=== PATIENT | male | born 1975 | race Caucasian/White ===

== ENCOUNTER 2017-11-02 07:02 | Inpatient (IN) ==
[2017-11-02] MEDS ORDERED: 0.9 % Sodium Chloride 1,000 ML IVC ONE (07:26)
[2017-11-02] MEDS ORDERED: Ondansetron 4 MG/2 ML VIAL IVP ONE (07:26)
[2017-11-02] MEDS ORDERED: *HR* FentaNYL (PF) 100 MCG/2 ML VIAL IVP ONE (07:27)
--- NOTE | 2017-11-02 07:30 | Emergency Department Note ---
Disposition Clinical Impression: Perforated appendicitis Abdominal pain Qualifiers: Abdominal location: right lower quadrant Qualified Code(s): R10.31 - Right lower quadrant pain Disposition: Admitted As Inpatient Condition: Fair Referrals: Mariajose Reyes DO [Primary Care Provider] - Forms: ED Satisfaction Letter, Work/School Release Time of Disposition: 09:01 Abdominal Pain HPI - General Chief Complaint: ED Abdominal Pain Stated Complaint: abd pain Time Seen by Provider: 11/02/17 07:11 Source: patient Mode of arrival: ambulatory Limitations: no limitations Nursing Notes Reviewed: Yes Vital Signs Reviewed: Yes - History of Present Illness HPI Narrative: 41-year-old otherwise healthy male persists for evaluation of abdominal pain. Patient states symptom onset was 48 hours ago. Patient noted some lower. Umbilical abdominal pain with a prominence of pain in the right lower quadrant. Patient states the pain is persisted until this morning. Patient reports nausea but no vomiting. Patient denies any notable fevers. Patient has reported history of constipation. Patient states the pain is appear throbbing in nature. Patient denies any aggravating or alleviating factors. Patient denies any dysuria or hematuria. Patient denies any abdominal surgeries. Patient's been nothing by mouth for the past 2 hours. Pain Scale: 5 - Related Data Allergies Allergy/AdvReac Type Severity Reaction Status Date / Time No Known Allergies Allergy Verified 11/02/17 07:04 All systems ED: reviewed and negative except as stated. Constitutional: Denies: fever Cardiovascular: Denies: chest pain Respiratory: Denies: cough, dyspnea Gastrointestinal: Reports: abdominal pain, nausea, constipation. Denies: vomiting Abdominal Pain PMH - Past Medical History Medical history: Reports: no medical history Male Surgical History: Reports: herniorrhaphy Psychiatric history: Reports: no psych history - Social History Smoking status: Current every day smoker Alcohol use: Reports: none Drug use: Reports: none Physical Exam - General Limitations: no limitations General appearance: alert, in no apparent distress - Head Head exam: atraumatic, normocephalic, normal inspection - Eye Eye exam: Present: normal appearance, PERRL, EOMI - ENT ENT exam: normal exam, normal oropharynx, mucous membranes moist - Neck Neck exam: Present: normal inspection - Chest Chest inspection: Present: normal inspection, symmetric chest wall rise - Respiratory Respiratory exam: Present: normal lung sounds bilaterally. Absent: respiratory distress - Cardiovascular Cardiovascular exam: Present: regular rate, normal rhythm. Absent: systolic murmur - Abdominal Exam Abdominal exam: Present: soft, tenderness, guarding (voluntary guarding). Absent: distention, rebound - Extremities Exam Extremities exam: Present: normal inspection. Absent: pedal edema - Back Exam Back exam: Present: normal inspection - Neurological Exam Neurological exam: Present: alert, oriented X3 - Skin Skin exam: Present: warm, dry, intact, normal color Course Course Narrative: Patient seen and examined. Patient appears comfortable. Patient does has noted right lower quadrant tenderness. Does have voluntary guarding. Patient will get basic labs appropriate pain control IV fluids and CT of the abdomen and pelvis concerns for appendicitis. - Reevaluation(s) Reevaluation #1: Patient's repeat abdominal exam shows significant tenderness in the right lower quadrant with voluntary guarding. Time: 09:04 - Consultations Consultation #1: Spoke with surgery, Dr. Marrero who recommends Zosyn and will be down to evaluate the patient. Time: 09:04 Vital Signs Temperature 98.2 F 11/02/17 07:04 Pulse Rate 102 11/02/17 07:04 Respiratory Rate 20 11/02/17 07:04 Blood Pressure 93/65 11/02/17 07:04 O2 Sat by Pulse Oximetry 97 11/02/17 07:04 Temperature 98.2 F 11/02/17 07:04 Pulse Rate 103 11/02/17 08:35 Respiratory Rate 20 11/02/17 08:35 Blood Pressure 131/77 11/02/17 08:35 O2 Sat by Pulse Oximetry 96 11/02/17 08:35 Oxygen Delivery Oxygen Delivery Room Air Abdominal Pain - MDM Narrative Medical decision making narrative: Patient's workup in the emergency department shows a perforated appendicitis. Patient's pain was controlled emergency arm. Patient is treated with IV fluids. Patient is also given antibiotics. Patient's abdominal exam is benign peritoneal but did have significant tenderness in the right lower side with voluntary guarding. Patient case was discussed with the on-call surgeon who will be down to evaluate the patient. Patient received preoperative EKG screening. Patient is updated on plan of care. - Lab Data Lab results reviewed: Yes I reviewed the patient's lab results. Result diagrams: 11/02/17 07:30 11/02/17 07:30 Lab Results 11/02/17 11/02/17 11/02/17 Range/Units 07:18 07:30 07:30 WBC 21.6 H (4.3-11.1) K/mcL RBC 5.30 (4.19-5.50) M/mcL Hgb 15.3 (12.9-16.9) g/dL Hct 45.4 (37.5-50.1) % MCV 85.7 (83.0-100.0) fL MCH 28.9 (28.0-33.3) pg MCHC 33.7 (31.6-35.5) g/dL RDW 13.3 (11.5-14.5) % Plt Count 289 (140-400) K/mcL MPV 10.9 (9.4-12.4) fL Immature Gran % 0.6 (0-4) % Seg Neutrophils % 72.4 % Lymphocytes % 13.5 % Monocytes % 13.2 % Eosinophils % 0.1 % Basophils % 0.2 % Neutrophils # 15.6 H (1.6-8.9) K/mcL Lymphocytes # 2.9 (0.6-4.6) K/mcL Monocytes # 2.8 H (0.0-1.3) K/mcL Eosinophils # 0.0 (0.0-0.6) K/mcL Basophils # 0.0 (0.0-0.2) K/mcL Sodium 133 L (136-145) mEq/L Potassium 3.6 (3.5-5.1) mEq/L Chloride 104 (98-107) mEq/L Carbon Dioxide 21 L (23-29) mEq/L BUN 9 (6-20) mg/dL Creatinine 1.07 (0.70-1.30) mg/dL Est GFR ( Amer) > 60 (> 60) Est GFR (Non-Af Amer) > 60 (> 60) BUN/Creatinine Ratio 8 (6-26) Glucose 147 H (70-105) mg/dL Calculated Osmolality 277 L (280-300) Calcium 9.3 (8.6-10.3) mg/dL Total Bilirubin 0.6 (0.3-1.0) mg/dL Direct Bilirubin 0.1 (0.0-0.2) mg/dL Indirect Bilirubin 0.5 (0.0-1.2) mg/dL AST 11 L (13-39) Units/L ALT 13 (7-52) Units/L Alkaline Phosphatase 63 (34-104) Units/L Serum Total Protein 7.1 (6.4-8.9) g/dL Albumin 4.0 (3.5-5.7) g/dL Globulin 3.1 (2.4-3.5) g/dL Albumin/Globulin Ratio 1.3 (1.1-2.2) Lipase < 3 L (11-82) Units/L Urine Color Dark Yellow (Yellow) Urine Clarity Clear (Clear) Urine pH 6.5 (5.0-8.0) pH Units Ur Specific [place] 1.030 H (1.010-1.025) Urine Protein 30 H (Neg-Trace) mg/dL Urine Glucose (UA) Normal (Normal) mg/dL Urine Ketones Trace H (Negative) mg/dL Urine Blood Negative (Negative) Urine Nitrite Negative (Negative) Urine Bilirubin Small H (Negative) Urine Urobilinogen Normal (Normal) mg/dL Ur Leukocyte Esterase Negative (Negative) Urine Microscopic RBC 5-15 H (0-3) per hpf Urine Microscopic WBC 0-3 (0-3) per hpf Ur Squamous Epith Cells Few (None-Few) per lpf Urine Bacteria None Seen (None-Few) per hpf Hyaline Casts None Seen (None-Few) per lpf Ur Culture Indicated? NO (NO) - Radiology Data Radiology results reviewed: Yes I reviewed the patient's radiology results. Abdomen/Pelvis CT 11/02/17 07:29 IMPRESSION: Perforated acute appendicitis with appendicolith noted and inflammation and fluid the periappendiceal region/ retroperitoneum with a small amount of free fluid in the abdomen. No drainable abscess is seen at this time. D/ / Fred Calloway MD / Fred Calloway MD Interpreting Provider: Fred Calloway MD - EKG Data EKG attestation: Yes I reviewed and interpreted this EKG. EKG shows normal: sinus rhythm Rate: normal Rhythm: NSR [place]/QRS: normal Interpretation: no acute changes, nonspecific ST-T wave changes S.B.A.R. - S.B.A.R. Situation: Demographics Background: Presenting Complaint Assessment: Vital Signs, Course and respsone to treatment, Patient/Family Expectation Recommendation: Barrier(s) to disposition, Recommendation based on pending studies, treatments, or consults Ellen Report Given to: Dr. Elida Hughes Repor Time: 09:02
[2017-11-02 08:10] LABS: Basophils % 0.2 %; Eosinophils % 0.1 %; Hematocrit 45.4 % (37.5-50.1); Hemoglobin 15.3 g/dL (12.9-16.9); Immature Granulocytes % 0.6 % (0-4); Lymphocytes # 2.9 K/mcL (0.6-4.6); Lymphocytes % 13.5 %; Mean Corpuscular HGB Conc 33.7 g/dL (31.6-35.5); Mean Corpuscular Hemoglobin 28.9 pg (28.0-33.3); Mean Corpuscular Volume 85.7 fL (83.0-100.0); Mean Platelet Volume 10.9 fL (9.4-12.4); Monocytes # 2.8 K/mcL (0.0-1.3); Monocytes % 13.2 %; Neutrophils # 15.6 K/mcL (1.6-8.9); Platelet Count 289 K/mcL (140-400); Red Cell Distribution Width 13.3 % (11.5-14.5); Segmented Neutrophils % 72.4 %
[2017-11-02 08:11] LABS: BUN/Creatinine Ratio 8 (6-26); Bilirubin,Direct 0.1 mg/dL (0.0-0.2); Bilirubin,Total 0.6 mg/dL (0.3-1.0); Blood Urea Nitrogen 9 mg/dL (6-20); Calcium 9.3 mg/dL (8.6-10.3); Carbon Dioxide 21 mEq/L (23-29); Chloride 104 mEq/L (98-107); Glucose 147 mg/dL (70-105); Osmolality,Calculated 277 (280-300); Potassium 3.6 mEq/L (3.5-5.1); Sodium 133 mEq/L (136-145); eGFR For African Americans > 60 (> 60); eGFR For Non-African Americans > 60 (> 60)
--- NOTE | 2017-11-02 08:11 | Emergency Department Note ---
START Narrative - START START: I examined this patient and my medical decision-making was reviewed with the Resident Physician. I agree with the documented findings, disposition and treatment plan as described except to the extent set forth below. 41 year old male prsents to the ED with complaints of abdominal pain suggestive of appendicitis assocaited with nausea. No vomitting, no fevers. WE will do labs and ABCT for evaluation.
[2017-11-02 08:12] LABS: Alanine Aminotransferase 13 Units/L (7-52); Albumin/Globulin Ratio 1.3 (1.1-2.2); Alkaline Phosphatase 63 Units/L (34-104); Aspartate Amino Transferase 11 Units/L (13-39); Bilirubin,Indirect 0.5 mg/dL (0.0-1.2); Globulin 3.1 g/dL (2.4-3.5); Lipase < 3 Units/L (11-82); Total Protein 7.1 g/dL (6.4-8.9)
[2017-11-02 08:21] LABS: Bilirubin,Urine Small (Negative); Blood,Urine Negative (Negative); Clarity,Urine Clear (Clear); Color,Urine Dark Yellow (Yellow); Glucose,Urine (UA) Normal (Normal); Ketones,Urine Trace mg/dL (Negative); Leukocyte Esterase,Urine Negative (Negative); Nitrite,Urine Negative (Negative); PH,Urine 6.5 pH Units (5.0-8.0); Protein,Urine 30 mg/dL (Neg-Trace); Urobilinogen,Urine Normal (Normal)
[2017-11-02 08:23] LABS: Bacteria,Urine None Seen per hpf (None-Few); Hyaline Casts,Urine None Seen per lpf (None-Few); Squamous Epithelial Cell,Urine Few per lpf (None-Few); WBC,Urine 0-3 per hpf (0-3)
[2017-11-02] MEDS ORDERED: Piperacillin/Tazobactam 3.375 GM in 0.9 % Sodium Chloride Mini Bag 100 ML IVPB ONE (08:58)
[2017-11-02] MEDS ORDERED: *HR* Metoprolol 5 MG/5 ML VIAL IVP PRN (10:16)
[2017-11-02] MEDS ORDERED: Naloxone 0.4 MG/ML INJ IVP PRN (10:16)
[2017-11-02] MEDS ORDERED: Ondansetron 4 MG/2 ML VIAL IVP PRN (10:16)
[2017-11-02] MEDS ORDERED: *HR* Promethazine 25 MG/ML VIAL IVP PRN (10:16)
[2017-11-02] MEDS ORDERED: MORPHINE SUL Oral CONC 10 MG/0.5 ML ORAL.SYG SL PRN ×2 (10:22→10:23)
[2017-11-02] MEDS: 0.9 % Sodium Chloride 1,000 ML IVC SCH ×2 (10:52→19:52)
[2017-11-02] MEDS ORDERED: Ketorolac 30 MG/ML VIAL IVP ONE (11:20)
[2017-11-02] MEDS ORDERED: OXYCODONE Oral CONC 10 MG/0.5 ML ORAL.SYG SL PRN ×2 (12:00)
[2017-11-02] MEDS: Pantoprazole 40 MG VIAL IVP SCH (12:19)
--- NOTE | 2017-11-02 15:59 | General Surg History&Physical ---
Date of Encounter: 11/02/17 Time of Encounter: 11:00 Assessment and Plan (1) Leukocytosis Current Visit: Yes Status: Acute The assessment and plan as outlined above was discussed with the patient and/or family members who expressed understanding and agreement. All questions were answered. trend wbc on zosyn Qualifiers: Leukocytosis type: other Qualified Code(s): D72.828 - Other elevated white blood cell count (2) Hyperlipidemia Current Visit: Yes Status: Chronic The assessment and plan as outlined above was discussed with the patient and/or family members who expressed understanding and agreement. All questions were answered. hold home medication Qualifiers: Hyperlipidemia type: unspecified Qualified Code(s): E78.5 - Hyperlipidemia , unspecified (3) Abdominal pain Current Visit: Yes Status: Acute The assessment and plan as outlined above was discussed with the patient and/or family members who expressed understanding and agreement. All questions were answered. prn oxycodone po schedule ofirmev serial abdominal exams Qualifiers: Abdominal location: right lower quadrant Qualified Code(s): R10.31 - Right lower quadrant pain (4) Perforated appendicitis Current Visit: Yes Status: Acute The assessment and plan as outlined above was discussed with the patient and/or family members who expressed understanding and agreement. All questions were answered. dicussed CT results with patient and father, perforated appendicitis with surrounding inflammation and fecalith, no abscess discussed will try to get over episode with conservative measures but concerned may not be possible with fecalith present serial abdominal exams npo ivf hydration prn pain control scheduled ofirmev gi/dvt prophylaxis (5) Seasonal allergies Current Visit: Yes Status: Chronic The assessment and plan as outlined above was discussed with the patient and/or family members who expressed understanding and agreement. All questions were answered. hold po medication, ok for inhalers Qualifiers: Allergic rhinitis trigger: unspecified Qualified Code(s): J30.2 - Other seasonal allergic rhinitis History of Present Illness Chief complaint: abdominal pain HPI: Mr. Lange is a 41 year old male who evening (~2days ago) started having at first sharp umbilical pain that over time has radiated to his right lower quadrant. The pain is constant without radiation. He denies any nausea or emesis. He has not had flatus in a day. He denies any dysuria. He has no fevers , chills or night sweats. He presented to ED and CT was done showing perforated appendicitis, fecalith, surrounding inflammation, wbc 20. Past Med Surg Social Fam HX - Past Medical History Source: patient Medical history: hyperlipidemia, other (seasonal allergies) Psychiatric history: no psych history - Past Surgical History Surgical History: other (UHR at 1 yrs age) - Social History Smoking Status: Current every day smoker Packs per day: 1.5 Alcohol use: none Drug use: none Occupational status: employed Current living situation: Home - Independent Activity Level: Independent ambulation - Family History Father Hx Family Cardiac Disorders: Yes (htn) Hx Family Endocrine Disorder: Yes (dm) Mother Hx Family Cancer: Yes (leukemia) Medications and Allergies Aspirin 975 mg PO DAILY 11/02/17 [History] Atorvastatin Calcium [Lipitor] 20 mg PO HS 11/02/17 [History] Cetirizine HCl [Cetirizine HCl] 10 mg PO DAILY 11/02/17 [History] Fluticasone Propionate Nasal [Flonase] 1 spray NS DAILY 11/02/17 [History] Fluticasone/Vilanterol [Breo Ellipta 100-25 Mcg INH] 1 puff IH DAILY 11/02/17 [ History] 3 Allergy/AdvReac Type Severity Reaction Status Date / Time No Known Allergies Allergy Verified 11/02/17 09:28 Review of Systems All systems PM: reviewed and no additional remarkable complaints except as stated All systems PM: The remainder of the systems were reviewed and are negative General Surgery Exam Initial Vital Signs Temp Pulse Resp BP Pulse Ox 98.2 F 102 20 93/65 97 11/02/17 07:04 11/02/17 07:04 11/02/17 07:04 11/02/17 07:04 11/02/17 07:04 - General physical appearance well developed, well nourished, moderate pain - Eyes PERRL, normal ocular movement - ENT normal mucosa, normocephalic - Neck trachea midline - Respiratory normal expansion, clear to auscultation - Cardiovascular Cardiovascular exam: Present: RRR, no murmurs/rubs/gallops - Abdomen Abdomen general surgery: Present: bowel sounds present, soft, tender. Absent: distended, guarding, rebound Abdominal Tenderness: Present: RLQ - Integumentary Integumentary general surgery: Present: warm and dry, no abnormal pigmentation - Neurologic Present: CN 2-12 grossly intact - Musculoskeletal Present: normal posture - Psychiatric Psychiatric general surgery: Present: A&Ox3, speech is normal Results - Labs 11/02/17 07:30 11/02/17 07:30 Abnormal lab results WBC 21.6 K/mcL (4.3-11.1) H 11/02/17 07:30 Neutrophils # 15.6 K/mcL (1.6-8.9) H 11/02/17 07:30 Monocytes # 2.8 K/mcL (0.0-1.3) H 11/02/17 07:30 Sodium 133 mEq/L (136-145) L 11/02/17 07:30 Carbon Dioxide 21 mEq/L (23-29) L 11/02/17 07:30 Glucose 147 mg/dL (70-105) H 11/02/17 07:30 POC Glucose 121 (58-89) H 11/02/17 11:57 Calculated Osmolality 277 (280-300) L 11/02/17 07:30 AST 11 Units/L (13-39) L 11/02/17 07:30 Lipase < 3 Units/L (11-82) L 11/02/17 07:30 Ur Specific [place] 1.030 (1.010-1.025) H 11/02/17 07:18 Urine Protein 30 mg/dL (Neg-Trace) H 11/02/17 07:18 Urine Ketones Trace mg/dL (Negative) H 11/02/17 07:18 Urine Bilirubin Small (Negative) H 11/02/17 07:18 Urine Microscopic RBC 5-15 per hpf (0-3) H 11/02/17 07:18 All other labs normal. Short CBC 11/02/17 Range/Units 07:30 WBC 21.6 H (4.3-11.1) K/mcL Hgb 15.3 (12.9-16.9) g/dL Hct 45.4 (37.5-50.1) % Plt Count 289 (140-400) K/mcL Neutrophils # 15.6 H (1.6-8.9) K/mcL BMP 11/02/17 Range/Units 07:30 Sodium 133 L (136-145) mEq/L Potassium 3.6 (3.5-5.1) mEq/L Chloride 104 (98-107) mEq/L Carbon Dioxide 21 L (23-29) mEq/L BUN 9 (6-20) mg/dL Creatinine 1.07 (0.70-1.30) mg/dL Glucose 147 H (70-105) mg/dL Calcium 9.3 (8.6-10.3) mg/dL Liver Function 11/02/17 Range/Units 07:30 Total Bilirubin 0.6 (0.3-1.0) mg/dL Direct Bilirubin 0.1 (0.0-0.2) mg/dL AST 11 L (13-39) Units/L ALT 13 (7-52) Units/L Alkaline Phosphatase 63 (34-104) Units/L Albumin 4.0 (3.5-5.7) g/dL Urine 11/02/17 Range/Units 07:18 Urine Color Dark Yellow (Yellow) Urine Clarity Clear (Clear) Urine pH 6.5 (5.0-8.0) pH Units Ur Specific [place] 1.030 H (1.010-1.025) Urine Protein 30 H (Neg-Trace) mg/dL Urine Glucose (UA) Normal (Normal) mg/dL Vital Signs Temp Pulse Resp BP Pulse Ox 11/02/17 14:17 99.4 F 81 18 99/58 94 11/02/17 10:35 98.1 F 79 16 128/83 95 11/02/17 09:09 88 20 104/89 96 11/02/17 08:35 103 20 131/77 96 11/02/17 08:03 67 20 118/68 96 11/02/17 07:32 82 20 110/76 99 11/02/17 07:20 90 20 93/85 99 11/02/17 07:19 97 11/02/17 07:04 98.2 F 102 20 93/65 97 Intake and Output 11/02/17 11/02/17 11/02/17 07:59 15:59 23:59 Intake Total 1000 / 1000 Balance 1000 / 1000 Intake: IV Fluids 1000 / 1000 0.9 % Sodium Chloride 1,000 ML 1000 / 1000 @ 3750 mls/hr IVC .Q16M ONE Rx# :[id number] Oral 0 / 0 Other: Meal NPO Percent of Meal Consumed 0% Stool Characteristics Normal for Patient Stool Color Brown Weight 102.058 kg 97.069 kg Blood Glucose* 121 Patient Weight 03/10/18 23:59 Weight 97.069 kg - Imaging CT scan - abdomen: report reviewed, image reviewed CT scan - pelvis: report reviewed, image reviewed
[2017-11-02] MEDS: Piperacillin/Tazobactam 3.375 GM in 0.9 % Sodium Chloride Mini Bag 100 ML IVPB SCH (16:00)
[2017-11-02] MEDS ORDERED: Acetaminophen IV 1,000 MG/100 ML INFUS..BTL IVPB SCH (16:00)
[2017-11-02] MEDS: *HR* Heparin 5,000 UNIT/ML VIAL SQ SCH (17:15)
[2017-11-03] MEDS: Acetaminophen IV 1,000 MG/100 ML INFUS..BTL IVPB SCH ×4 (00:04→23:44)
[2017-11-03] MEDS: Piperacillin/Tazobactam 3.375 GM in 0.9 % Sodium Chloride Mini Bag 100 ML IVPB SCH ×4 (00:05→23:45)
[2017-11-03] MEDS: 0.9 % Sodium Chloride 1,000 ML IVC SCH ×3 (04:50→18:10)
[2017-11-03] MEDS: *HR* Heparin 5,000 UNIT/ML VIAL SQ SCH ×2 (04:50→18:11)
[2017-11-03] MEDS: Pantoprazole 40 MG VIAL IVP SCH (07:38)
[2017-11-03 08:33] LABS: Basophils % 0.2 %; Immature Granulocytes % 0.7 % (0-4); Monocytes % 10.1 %; Red Cell Distribution Width 13.6 % (11.5-14.5)
[2017-11-03 08:35] LABS: Basophils # 0.1 K/mcL (0.0-0.2); Hematocrit 39.9 % (37.5-50.1); Hemoglobin 13.1 g/dL (12.9-16.9); Lymphocytes % 11.6 %; Mean Corpuscular HGB Conc 32.8 g/dL (31.6-35.5); Mean Corpuscular Hemoglobin 29.2 pg (28.0-33.3); Mean Corpuscular Volume 89.1 fL (83.0-100.0); Mean Platelet Volume 10.9 fL (9.4-12.4); Monocytes # 2.6 K/mcL (0.0-1.3); Neutrophils # 19.8 K/mcL (1.6-8.9); Platelet Count 225 K/mcL (140-400); Red Blood Count 4.48 M/mcL (4.19-5.50); Segmented Neutrophils % 77.4 %
[2017-11-03 08:58] LABS: BUN/Creatinine Ratio 8 (6-26); Blood Urea Nitrogen 9 mg/dL (6-20); Calcium 7.9 mg/dL (8.6-10.3); Carbon Dioxide 23 mEq/L (23-29); Chloride 112 mEq/L (98-107); Glucose 96 mg/dL (70-105); Magnesium 1.7 mg/dL (1.6-2.6); Osmolality,Calculated 273 (280-300); Phosphorous 2.9 mg/dL (2.7-4.5); Potassium 3.3 mEq/L (3.5-5.1); Sodium 132 mEq/L (136-145); eGFR For African Americans > 60 (> 60); eGFR For Non-African Americans > 60 (> 60)
[2017-11-03] MEDS ORDERED: 0.9 % Sodium Chloride 1,000 ML IVC ONE (09:39)
[2017-11-03 10:14] LABS: Platelet Estimate Normal (Normal)
--- NOTE | 2017-11-03 10:30 | General Surgery Progress Note ---
Date of Encounter: 11/03/17 Time of Encounter: 10:27 - Assessment and Plan (1) Leukocytosis Current Visit: Yes Status: Acute worsened today, continue abx Qualifiers: Leukocytosis type: other Qualified Code(s): D72.828 - Other elevated white blood cell count (2) Hyperlipidemia Current Visit: Yes Status: Chronic holding home meds Qualifiers: Hyperlipidemia type: unspecified Qualified Code(s): E78.5 - Hyperlipidemia , unspecified (3) Abdominal pain Current Visit: Yes Status: Acute well controlled per patient Qualifiers: Abdominal location: right lower quadrant Qualified Code(s): R10.31 - Right lower quadrant pain (4) Perforated appendicitis Current Visit: Yes Status: Acute dicussed with patient given his increased wbc, hypotension, fecalith at appendix base and fever last night I do not think we can continue conservative therapy will plan laparoscopic appendectomy, possible open, possible bowel resection, risks and benefits discussed and he wishes to proceed continue npo prn pain control continue antibiotics gi/dvt prophylaxis plan OR today continue ivf hydration, bolus 1 L NS (5) Seasonal allergies Current Visit: Yes Status: Chronic holding home meds Qualifiers: Allergic rhinitis trigger: unspecified Qualified Code(s): J30.2 - Other seasonal allergic rhinitis Subjective Patient reports: no new complaints, still having pain, no flatus, no bowel movement, fever Objective Vital Signs - Last 8 Hours Temp Pulse Resp BP Pulse Ox 11/03/17 07:49 94 11/03/17 07:43 97.9 F 68 16 93/60 94 11/03/17 03:50 98.8 F 82 15 85/45 95 11/03/17 01:39 98.8 F Intake and Output 11/02/17 11/03/17 11/03/17 22:59 07:59 15:59 Intake Total 200 / 200 Output Total Balance 200 / 200 Intake: IV Fluids 200 / 200 0.9 % Sodium Chloride 1,000 ML @ 125 mls/hr IVC .Q8H G[facility]ELLE Rx#: [id number] Ofirmev 1,000 mg/100 ml 1,000 100 / 100 mg In 100 ml @ 400 mls/hr IVPB Q8HR GABRIELLE Rx#:[id number] Zosyn 3.375 GM In 0.9 % Sodium Chloride (Mini-Bag +) 100 ML @ 25 mls/hr IVPB Q8HR GABRIELLE Rx#: [id number] Oral Output: Urine Other: Meal Weight Blood Glucose* Patient Weight 11/04/17 00:59 Weight 97.122 kg - General physical appearance well developed, well nourished, moderate distress, moderate pain - Eyes PERRL, normal ocular movement - ENT normal mucosa, normocephalic - Neck Neck exam: trachea midline - Respiratory normal expansion, clear to auscultation - Cardiovascular Cardiovascular exam: Present: RRR - Abdomen Abdomen: Present: bowel sounds present, soft, distended, tender, guarding ( voluntary), rebound Abdominal Tenderness: RLQ - Genitourinary normal penis with no external lesions - Integumentary no rash, no growths - Neurologic CN 2-12 grossly intact - Musculoskeletal normal posture - Psychiatric oriented to time, oriented to person, oriented to place, speech is normal, memory intact - Labs 11/03/17 06:36 11/03/17 06:36 Vital Signs Temp Pulse Resp BP Pulse Ox 11/03/17 07:49 94 11/03/17 07:43 97.9 F 68 16 93/60 94 11/03/17 03:50 98.8 F 82 15 85/45 95 11/03/17 01:39 98.8 F 11/03/17 00:09 102.6 F H 90 14 88/42 96 11/02/17 19:22 98.2 F 81 16 93/58 93 11/02/17 14:17 99.4 F 81 18 99/58 94 11/02/17 10:35 98.1 F 79 16 128/83 95 Intake and Output 11/02/17 11/03/17 11/03/17 22:59 07:59 15:59 Intake Total 200 / 200 Output Total Balance 200 / 200 Intake: IV Fluids 200 / 200 0.9 % Sodium Chloride 1,000 ML @ 125 mls/hr IVC .Q8H G[facility]ELLE Rx#: [id number] Ofirmev 1,000 mg/100 ml 1,000 100 / 100 mg In 100 ml @ 400 mls/hr IVPB Q8HR G[facility]RIELLE Rx#:[id number] Zosyn 3.375 GM In 0.9 % Sodium Chloride (Mini-Bag +) 100 ML @ 25 mls/hr IVPB Q8HR G[facility]RIELLE Rx#: [id number] Oral Output: Urine Other: Meal Weight Blood Glucose* Patient Weight 11/04/17 00:59 Weight 97.122 kg Short CBC 11/03/17 Range/Units 06:36 WBC 25.6 H (4.3-11.1) K/mcL Hgb 13.1 D (12.9-16.9) g/dL Hct 39.9 (37.5-50.1) % Plt Count 225 (140-400) K/mcL Neutrophils # 19.8 H (1.6-8.9) K/mcL BMP 11/03/17 Range/Units 06:36 Sodium 132 L (136-145) mEq/L Potassium 3.3 L (3.5-5.1) mEq/L Chloride 112 H (98-107) mEq/L Carbon Dioxide 23 (23-29) mEq/L BUN 9 (6-20) mg/dL Creatinine 1.11 (0.70-1.30) mg/dL Glucose 96 (70-105) mg/dL Calcium 7.9 L (8.6-10.3) mg/dL Consult Discharge Plan - Plan Referrals: Mariajose Reyes DO [Primary Care Provider] -
[2017-11-03] MEDS ORDERED: *HR* Propofol 200 MG/20 ML VIAL IVP ONE ×2 (11:28→14:51)
[2017-11-03] MEDS ORDERED: Lidocaine -MPF 2% 2 ML VIAL ONE (11:29)
[2017-11-03] MEDS ORDERED: *HR* FentaNYL (PF) 100 MCG/2 ML VIAL ONE ×3 (11:36→16:48)
[2017-11-03] MEDS ORDERED: *HR* Midazolam HCl 2 MG/2 ML VIAL ONE (11:36)
--- NOTE | 2017-11-03 11:41 | Anesthesia Evaluation PreOp ---
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 Other Medical History: Denies Any Significant HX Anesthesia History: No Prior Anesthetic Complications, Past Anesthesia (hernia repair as an ) Alcohol Use: none Drug use: none Medications and Allergies Aspirin 975 mg PO DAILY 11/02/17 [History] Atorvastatin Calcium [Lipitor] 20 mg PO HS 11/02/17 [History] Cetirizine HCl [Cetirizine HCl] 10 mg PO DAILY 11/02/17 [History] Fluticasone Propionate Nasal [Flonase] 1 spray NS DAILY 11/02/17 [History] Fluticasone/Vilanterol [Breo Ellipta 100-25 Mcg INH] 1 puff IH DAILY 11/02/17 [ History] 3 Allergy/AdvReac Type Severity Reaction Status Date / Time No Known Allergies Allergy Verified 11/02/17 09:28 - Meds/Allergy Pre-op Review Medications Reviewed: Yes Allergies Reviewed: Yes Beta Blockers on Current Med List: No Anesthesia Results - Labs 11/03/17 06:36 11/03/17 06:36 Anesthesia Exam Last Vital Signs Temp 97.8 F 11/03/17 11:05 Pulse 83 11/03/17 11:05 Resp 15 11/03/17 11:05 BP 94/60 11/03/17 11:05 Pulse Ox 95 11/03/17 11:05 Weight: 97 kg - HEENT Pupil (Motor): Pupils equal, EOMI Mallampati: III Teeth: Poor dentition (one loose front tooth) Oral Opening: Greater than 3 - 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
[2017-11-03] MEDS ORDERED: *HR* PHENYLEPHRINE 1,000 MCG/10 ML SYRINGE IVP ONE (14:34)
[2017-11-03] MEDS ORDERED: *HR* OxyCODONE Immed Rel 5 MG TABLET PO PRN (14:48)
[2017-11-03] MEDS ORDERED: *HR* Promethazine 25 MG/ML VIAL IVP PRN ×2 (14:48→17:43)
[2017-11-03] MEDS ORDERED: Ketamine *HR* 500 MG/10 ML MDV ONE (14:53)
[2017-11-03] MEDS ORDERED: Dexamethasone 4 MG/ML VIAL ONE (15:04)
[2017-11-03] MEDS ORDERED: Ondansetron 4 MG/2 ML VIAL ONE ×2 (15:04→16:45)
[2017-11-03] MEDS ORDERED: Neostigmine Methylsulfate 3 MG/3 ML SYRINGE ONE (15:04)
[2017-11-03] MEDS ORDERED: *HR* Rocuronium Bromide 50 MG/5 ML VIAL ONE (15:11)
[2017-11-03] MEDS ORDERED: CefOXitin 2,000 MG VIAL ONE (16:39)
[2017-11-03] MEDS ORDERED: Ketorolac 30 MG/ML VIAL ONE (16:45)
--- NOTE | 2017-11-03 17:13 | Operative Note ---
Date of procedure: 11/03/17 Pre-op diagnosis: perforated appendicitis Post-op diagnosis: same Procedure: Laparoscopic appendectomy converted to open ileocectomy Complications: none immediate Anesthesia: GETA Surgeon: Mralene Marrero Was there an bookkeeping assistant present: Yes Cnmt: Yelena Dupont Estimated blood loss (cc): 50 Urine output (cc): 320 Specimen: terminal ileum,cecum Condition: stable Disposition: PACU Procedure in Detail: Patient was brought to the operating suite on his hospital bed. Sign in was performed and everyone was in agreement. Anesthesia was induced and patient was endotracheally intubated by anesthesia without incident. Patient was then placed supine on the operating table with his bilateral arms tucked. His abdomen was shaved. Ly catheter was placed by the circulating nurse. The abdomen was prepped and draped in the usual sterile fashion. Timeout was performed again everyone was in agreement. An incision through the skin into the subcutaneous tissue at the supraumbilical area was made with an 11 blade. Towel clamps were placed on either side of the umbilicus for retraction. S retractors were used to dissect to the anterior abdominal wall fascia. A Veress needle was placed through this incision and a water drop test confirmed placement and the abdomen was insufflated. The abdomen was entered with a 5 mm 0 degree laparoscope on a 5 mm XL trocar. The area under entry was visualized there was no apparent bleeding or bowel injury. A suprapubic incision through the skin and the subcutaneous tissue was made with an 11 blade. A 5 mm port was placed under direct visualization. The laparoscope was placed through this and the supraumbilical 5 mm port was exchanged for a 12 mm port under direct visualization. A left lower quadrant lateral abdominal wall incision was made with an 11 blade and a 5 mm port was placed under direct visualization. The patient was placed in Trendelenburg left side down position. The omentum was inflamed and adherent to the anterior and right lateral abdominal wall. This was bluntly taken down with laparoscopic DeBakey and purulent fluid interrupted from beneath the omentum. This was suctioned free from the abdomen. The omentum was retracted into the upper abdomen. The small bowel in the right lower quadrant as well as the cecum was inflamed and adherent to the right lateral abdominal wall which was taken down gently and bluntly with the laparoscopic DeBakey. During suctioning small stool balls Presenting into the suction field. The appendix was inflamed and dilated and curved in a circumferential fashion on the anterior aspect of the cecum. There was a perforation in either the cecum or proximal appendix with stool coming from this area. The decision to convert to open was made. A midline incision through the skin into the subcutaneous tissue was made with a 15 blade. We dissected to the anterior abdominal wall linea alba fascia with the Bovie. [place]'s were placed on either side of the fascia for retraction. The abdomen was entered with the Bovie and the incision elongated. A Bookwalter was placed for exposure and retraction. The perforation appeared to be at the base of the appendix at the area of the cecum. The cecum was elevated off the right lateral abdominal wall at the white line of Toldt with the Bovie. Gentle blunt dissection behind the cecum was done digitally. The right ureter was located and kept out of harm's way. The mesentery of the terminal ileum was dissected with the Bovie. Once enough length of terminal ileum and right colon was free an area of the proximal right colon was chosen for transection. An opening in the mesentery beneath this was made with the Bovie. The colon was transected with a linear JAMIE-75 stapler blue load 2. Atthe terminal ileum in area was chosen for transection and an opening in the mesentery beneath this area was made with the Bovie. The terminal ileum was transected with a linear JAMIE-75 stapler blue load. The mesentery of the terminal ileum and cecal area was transected with an impact LigaSure. The specimen was placed off to the back table for pathology. A [id number] terminal ileum to right colon anastomosis was made first with a linear JAMIE-75 stapler blue load creating a common channel. Babcocks are placed along the open common channel approximating the bowel. A TL 60 mm stapler was used to close the end of the small bowel and colon common channel. This was then secured with 3-0 silk [id number] stitches. Two 3-0 silk interrupted crotch stitches were placed. The abdomen was copiously irrigated with sterile saline and a 10 mm JADEN drain was placed into the pelvis through the skin of the right lower quadrant after first making incision with 11 blade. The JADEN drain was secured to the skin with a 2-0 silk stitch. The anastomosis was placed in the right upper quadrant after being wrapped with omentum. [place]'s are placed on either side of the fascia for retraction. A piece of Seprafilm was placed over the omentum beneath the opening of the fascia. The fascia was closed with 2 separate #1 non-looped PDS running stitches meeting in the middle. The subcutaneous tissue was copiously irrigated with 1 g of cefoxitin instilled in sterile saline. The subcutaneous tissue was reapproximated with 3-0 Vicryl interrupted stitches and the skin was closed with wendie. The suprapubic port site incision was closed with 2 wendie. The left lateral abdomen port site was closed with 2 wendie. The Ly catheter remained with the patient. All lap and instrument counts were correct at the end of the case. The patient tolerated the procedure well. He was awoken by anesthesia and extubated in the OR and taken to PACU in stable condition
[2017-11-03] MEDS ORDERED: *HR* OxyCODONE Immed Rel 5 MG TABLET ONE (17:37)
[2017-11-03] MEDS ORDERED: *HR* Metoprolol 5 MG/5 ML VIAL IVP PRN (17:43)
[2017-11-03] MEDS ORDERED: Naloxone 0.4 MG/ML INJ IVP PRN (17:43)
[2017-11-03] MEDS ORDERED: Ondansetron 4 MG/2 ML VIAL IVP PRN (17:43)
--- NOTE | 2017-11-03 18:00 | Anesthesia Evaluation Post Op ---
Date of Encounter: 11/03/17 Time of Encounter: 18:00 - Vital Signs Vital Signs: Last Vital Signs Temp 99.4 F 11/03/17 17:50 Pulse 70 11/03/17 17:50 Resp 16 11/03/17 17:50 BP 115/67 11/03/17 17:50 Pulse Ox 94 11/03/17 17:50 - Lungs Lungs: Clear Ascult./Percussion - Airway Airway: Non-obstructed - Cardiovascular Regular Rate - Mental Status Mental Status: Alert & Oriented, Answers Appropriately - Pain Pain Scale: 5 - Nausea Vomiting Nausea Vomiting: Not Present - Hydration Hydration: NPO, Ly catheter - Discharge PostOp Status: Transfer Patient to floor
[2017-11-03] MEDS: Ketorolac 15 MG/ML VIAL IVP SCH ×2 (18:11→23:44)
[2017-11-03] MEDS ORDERED: 0.9 % Sodium Chloride Mini Bag 100 ML ONE (23:21)
[2017-11-04] MEDS: *HR* Heparin 5,000 UNIT/ML VIAL SQ SCH ×2 (05:26→18:04)
[2017-11-04] MEDS: Ketorolac 15 MG/ML VIAL IVP SCH ×3 (05:26→18:03)
[2017-11-04] MEDS: 0.9 % Sodium Chloride 1,000 ML IVC SCH ×3 (05:30→18:03)
[2017-11-04 05:39] LABS: Basophils % 0.1 %; Hematocrit 37.3 % (37.5-50.1); Hemoglobin 12.6 g/dL (12.9-16.9); Immature Granulocytes % 1.3 % (0-4); Lymphocytes # 1.7 K/mcL (0.6-4.6); Lymphocytes % 7.9 %; Mean Corpuscular HGB Conc 33.8 g/dL (31.6-35.5); Mean Corpuscular Hemoglobin 29.5 pg (28.0-33.3); Mean Corpuscular Volume 87.4 fL (83.0-100.0); Mean Platelet Volume 10.3 fL (9.4-12.4); Monocytes # 2.2 K/mcL (0.0-1.3); Monocytes % 10.2 %; Neutrophils # 17.3 K/mcL (1.6-8.9); Platelet Count 189 K/mcL (140-400); Red Blood Count 4.27 M/mcL (4.19-5.50); Red Cell Distribution Width 13.5 % (11.5-14.5); Segmented Neutrophils % 80.5 %
[2017-11-04 06:00] LABS: BUN/Creatinine Ratio 9 (6-26); Blood Urea Nitrogen 7 mg/dL (6-20); Calcium 7.4 mg/dL (8.6-10.3); Carbon Dioxide 21 mEq/L (23-29); Chloride 108 mEq/L (98-107); Glucose 120 mg/dL (70-105); Magnesium 1.6 mg/dL (1.6-2.6); Osmolality,Calculated 281 (280-300); Phosphorous 1.8 mg/dL (2.7-4.5); Potassium 3.3 mEq/L (3.5-5.1); Sodium 136 mEq/L (136-145); eGFR For African Americans > 60 (> 60); eGFR For Non-African Americans > 60 (> 60)
[2017-11-04] MEDS ORDERED: Potassium Phosphate 44 MEQ in 0.9 % Sodium Chloride 250 ML IVPB ONE (07:43)
[2017-11-04] MEDS: OXYCODONE Oral CONC 10 MG/0.5 ML ORAL.SYG SL PRN (09:11)
--- NOTE | 2017-11-04 09:40 | General Surgery Progress Note ---
<Lorie Kaplan Arnav - Last Filed: 11/04/17 09:28> Date of Encounter: 11/04/17 Time of Encounter: 09:15 - Assessment and Plan (1) Perforated appendicitis Current Visit: Yes Status: Acute POD #1 Laparoscopic appendectomy converted to open ileocectomy with Dr. Marrero NPO while awaiting return of bowel function IV fluids- 135ml/hour IV antibiotics- Zosyn Continue JADEN drain Daily dressing changes Supportive care and pain control- Scheduled ofirmfev and toradol in addition to prn medications; added fentanyl patch due to poor pain control Incentive Spirometer every 1 hours while awake GI/DVT prophylaxis Ambulate hallways TID with assistance Continue dee cather for strict I&Os Repeat am labs (2) Leukocytosis Current Visit: Yes Status: Acute Improving WBC- 25.6>21.5 IV antibiotics- Zosyn Continue JADEN drain Repeat am labs Qualifiers: Leukocytosis type: other Qualified Code(s): D72.828 - Other elevated white blood cell count (3) Hypokalemia Current Visit: Yes Status: Acute Replace potassium- 3.3 today Repeat am labs (4) DVT prophylaxis Current Visit: Yes Status: Acute Heparin 5,000 units SQ twice daily for DVT prophylaxis Ambulate hallways TID with assistance Subjective Patient reports: no new complaints, still having pain (not well controlled), no flatus, no bowel movement, afebrile Objective Vital Signs - Last 8 Hours Temp Pulse Resp BP Pulse Ox 11/04/17 06:48 98.5 F 75 16 98/59 94 11/04/17 04:11 99.3 F 91 16 99/53 94 Intake and Output 11/03/17 11/04/17 11/04/17 23:59 07:59 15:59 Intake Total 1200 / 1200 Output Total 650 / 650 640 / 640 Balance -650 / -650 560 / 560 Intake: IV Fluids 1200 / 1200 0.9 % Sodium Chloride 1,000 ML 1000 / 1000 @ 135 mls/hr IVC .Q7H25M [facility] Rx #:[id number] Ofirmev 1,000 mg/100 ml 1,000 100 / 100 mg In 100 ml @ 400 mls/hr IVPB Q8HR [facility] Rx#:[id number] Zosyn 3.375 GM In 0.9 % Sodium 100 / 100 Chloride (Mini-Bag +) 100 ML @ 25 mls/hr IVPB Q8HR [facility] Rx#: [id number] Oral 0 / 0 Output: Estimated Blood Loss 50 / 50 Urine Amount (Catheter) 320 / 320 Catheter 200 / 200 550 / 550 Wound Drainage 80 / 80 90 / 90 Right Lower Abdomen 80 / 80 90 / 90 Other: Meal NPO NPO Weight 96.3 kg Blood Glucose* 106 Patient Weight 11/04/17 23:59 Weight 96.3 kg - General physical appearance well developed, well nourished, moderate pain - Eyes normal ocular movement - ENT dry mucosa, atraumatic, normocephalic - Neck Neck exam: trachea midline - Respiratory normal respiratory effort, clear to auscultation, other (diminished bibasilar bases) - Cardiovascular Cardiovascular exam: Present: RRR - Abdomen Abdomen: Present: soft, tender (expected post-operative tenderness), wound (JADEN drain to bulb suction with serousang. drainage noted (approximately 110ml since midnight)) - Incision Incision: Present: clean and dry, intact - Genitourinary other (dee catheter to SD with clear, yellow urine noted) - Neurologic CN 2-12 grossly intact - Psychiatric oriented to time, oriented to person, oriented to place, speech is normal, memory intact - Labs 11/04/17 05:21 11/04/17 05:21 Diabetes panel 11/04/17 Range/Units 05:21 Sodium 136 (136-145) mEq/L Potassium 3.3 L (3.5-5.1) mEq/L Chloride 108 H (98-107) mEq/L Carbon Dioxide 21 L (23-29) mEq/L BUN 7 (6-20) mg/dL Creatinine 0.78 (0.70-1.30) mg/dL Glucose 120 H (70-105) mg/dL Calcium 7.4 L (8.6-10.3) mg/dL Calcium panel 11/04/17 Range/Units 05:21 Calcium 7.4 L (8.6-10.3) mg/dL Phosphorus 1.8 L (2.7-4.5) mg/dL Pituitary panel 11/04/17 Range/Units 05:21 Sodium 136 (136-145) mEq/L Potassium 3.3 L (3.5-5.1) mEq/L Chloride 108 H (98-107) mEq/L Carbon Dioxide 21 L (23-29) mEq/L BUN 7 (6-20) mg/dL Creatinine 0.78 (0.70-1.30) mg/dL Glucose 120 H (70-105) mg/dL Calcium 7.4 L (8.6-10.3) mg/dL Adrenal panel 11/04/17 Range/Units 05:21 Sodium 136 (136-145) mEq/L Potassium 3.3 L (3.5-5.1) mEq/L Chloride 108 H (98-107) mEq/L Carbon Dioxide 21 L (23-29) mEq/L BUN 7 (6-20) mg/dL Creatinine 0.78 (0.70-1.30) mg/dL Glucose 120 H (70-105) mg/dL Calcium 7.4 L (8.6-10.3) mg/dL Consult Discharge Plan - Plan Referrals: Mariajose Reyes DO [Primary Care Provider] - - Attending Attestation For this encounter, I have reviewed the [employer] AUDITOR or PA documentation, treatment plan, and medical decision making; and I have had face to face time with this patient. <Marlene Marrero - Last Filed: 11/05/17 14:40> Date of Encounter: 11/05/17 - Assessment and Plan (1) Leukocytosis Current Visit: Yes Status: Acute continue Abx trend wbc is trending down Qualifiers: Leukocytosis type: other Qualified Code(s): D72.828 - Other elevated white blood cell count (2) Hyperlipidemia Current Visit: Yes Status: Chronic holding home po meds Qualifiers: Hyperlipidemia type: unspecified Qualified Code(s): E78.5 - Hyperlipidemia , unspecified (3) Abdominal pain Current Visit: Yes Status: Acute prn pain control scheduled ofirm Qualifiers: Abdominal location: right lower quadrant Qualified Code(s): R10.31 - Right lower quadrant pain (4) Perforated appendicitis Current Visit: Yes Status: Acute continue abx prn pain control oob ambulate gi/dvt prophylaxis await return of bowel function (5) Seasonal allergies Current Visit: Yes Status: Chronic Qualifiers: Allergic rhinitis trigger: unspecified Qualified Code(s): J30.2 - Other seasonal allergic rhinitis Subjective Patient reports: no new complaints, still having pain, pain is less, no flatus, no bowel movement, afebrile Objective Vital Signs - Last 8 Hours Temp Pulse Resp BP Pulse Ox 11/05/17 11:00 98.2 F 78 17 115/76 94 11/05/17 07:00 98.2 F 86 18 115/70 94 Intake and Output 11/04/17 11/05/17 11/05/17 23:59 07:59 15:59 Intake Total 1145 / 1145 1300 / 1300 250 / 250 Output Total 620 / 620 900 / 900 395 / 395 Balance 525 / 525 400 / 400 -145 / -145 Intake: IV Fluids 1145 / 1145 1300 / 1300 0.9 % Sodium Chloride 1,000 ML 945 / 945 1000 / 1000 @ 135 mls/hr IVC .Q7H25M [facility] Rx #:[id number] Ofirmev 1,000 mg/100 ml 1,000 100 / 100 200 / 200 mg In 100 ml @ 400 mls/hr IVPB Q6H [facility] Rx#:[id number] Zosyn 3.375 GM In 0.9 % Sodium 100 / 100 100 / 100 Chloride (Mini-Bag +) 100 ML @ 25 mls/hr IVPB Q8HR [facility] Rx#: [id number] Oral 0 / 0 0 / 0 250 / 250 Output: Urine 0 / 0 200 / 200 50 / 50 Catheter 575 / 575 650 / 650 325 / 325 Wound Drainage 45 / 45 50 / 50 20 / 20 Right Lower Abdomen 45 / 45 50 / 50 20 / 20 Other: Meal NPO Breakfast Weight 96.5 kg Blood Glucose* 70 Patient Weight 11/05/17 23:59 Weight 96.5 kg - General physical appearance well developed, well nourished, moderate pain - Eyes PERRL, normal ocular movement - ENT normal mucosa, normocephalic - Respiratory normal expansion, normal respiratory effort - Cardiovascular Cardiovascular exam: Present: RRR - Abdomen Abdomen: Present: soft, tender. Absent: bowel sounds present, distended, guarding, rebound Additional Comments: JADEN serosang - Incision Incision: Present: clean and dry, intact - Genitourinary other - Musculoskeletal normal posture - Psychiatric oriented to time, oriented to person, oriented to place, speech is normal, memory intact - Labs 11/05/17 04:39 11/05/17 04:39 Diabetes panel 11/05/17 Range/Units 04:39 Sodium 139 (136-145) mEq/L Potassium 3.1 L (3.5-5.1) mEq/L Chloride 109 H (98-107) mEq/L Carbon Dioxide 20 L (23-29) mEq/L BUN 6 (6-20) mg/dL Creatinine 0.71 (0.70-1.30) mg/dL Glucose 81 (70-105) mg/dL Calcium 7.8 L (8.6-10.3) mg/dL Calcium panel 11/05/17 Range/Units 04:39 Calcium 7.8 L (8.6-10.3) mg/dL Pituitary panel 11/05/17 Range/Units 04:39 Sodium 139 (136-145) mEq/L Potassium 3.1 L (3.5-5.1) mEq/L Chloride 109 H (98-107) mEq/L Carbon Dioxide 20 L (23-29) mEq/L BUN 6 (6-20) mg/dL Creatinine 0.71 (0.70-1.30) mg/dL Glucose 81 (70-105) mg/dL Calcium 7.8 L (8.6-10.3) mg/dL Adrenal panel 11/05/17 Range/Units 04:39 Sodium 139 (136-145) mEq/L Potassium 3.1 L (3.5-5.1) mEq/L Chloride 109 H (98-107) mEq/L Carbon Dioxide 20 L (23-29) mEq/L BUN 6 (6-20) mg/dL Creatinine 0.71 (0.70-1.30) mg/dL Glucose 81 (70-105) mg/dL Calcium 7.8 L (8.6-10.3) mg/dL - Attending Attestation I have personally performed a face to face evaluation on this patient. I have reviewed and agree with the care plan. History and Exam by me shows:
[2017-11-04] MEDS: *HR* FentaNYL PATCH 25 MCG PATCH TD SCH (10:12)
[2017-11-04] MEDS: Pantoprazole 40 MG VIAL IVP SCH (10:15)
[2017-11-04] MEDS: Piperacillin/Tazobactam 3.375 GM in 0.9 % Sodium Chloride Mini Bag 100 ML IVPB SCH ×2 (10:20→18:04)
[2017-11-04] MEDS: Acetaminophen IV 1,000 MG/100 ML INFUS..BTL IVPB SCH ×2 (12:53→19:25)
--- NOTE | 2017-11-04 19:21 | Electrocardiograph Report ---
[place] [id number] Test Date: 2017-11-02 Pat Name: Del Lange Department: 104 Room: 3A Gender: M Dance Instructor: : 1975 Requested By: Yonathan Toro Order Number: [id number] Reading MD: Ernesto Ryan MD Measurements Intervals [place] Rate: 78 P: 56 [place]: 152 QRS: 86 QRSD: 108 T: 57 QT: 381 QTc: 414 Interpretive Statements SINUS RHYTHM Electronically Signed On 11-04-2017 19:20:10 EDT by Ernesto Ryan MD
[2017-11-05] MEDS: Ketorolac 15 MG/ML VIAL IVP SCH ×4 (00:06→17:03)
[2017-11-05] MEDS: Acetaminophen IV 1,000 MG/100 ML INFUS..BTL IVPB SCH ×4 (00:06→17:05)
[2017-11-05] MEDS: Piperacillin/Tazobactam 3.375 GM in 0.9 % Sodium Chloride Mini Bag 100 ML IVPB SCH ×3 (00:30→17:04)
[2017-11-05] MEDS: *HR* Heparin 5,000 UNIT/ML VIAL SQ SCH ×2 (05:24→17:04)
[2017-11-05] MEDS: 0.9 % Sodium Chloride 1,000 ML IVC SCH ×3 (05:24→17:06)
[2017-11-05 05:25] LABS: Basophils % 0.2 %; Eosinophils # 0.1 K/mcL (0.0-0.6); Eosinophils % 0.8 %; Hematocrit 38.5 % (37.5-50.1); Hemoglobin 12.7 g/dL (12.9-16.9); Immature Granulocytes % 0.9 % (0-4); Lymphocytes # 2.2 K/mcL (0.6-4.6); Lymphocytes % 13.7 %; Mean Corpuscular Hemoglobin 28.9 pg (28.0-33.3); Mean Corpuscular Volume 87.5 fL (83.0-100.0); Mean Platelet Volume 10.8 fL (9.4-12.4); Monocytes # 1.7 K/mcL (0.0-1.3); Monocytes % 10.6 %; Neutrophils # 11.6 K/mcL (1.6-8.9); Platelet Count 246 K/mcL (140-400); Red Cell Distribution Width 13.5 % (11.5-14.5); Segmented Neutrophils % 73.8 %
[2017-11-05 05:40] LABS: BUN/Creatinine Ratio 8 (6-26); Blood Urea Nitrogen 6 mg/dL (6-20); Calcium 7.8 mg/dL (8.6-10.3); Carbon Dioxide 20 mEq/L (23-29); Chloride 109 mEq/L (98-107); Glucose 81 mg/dL (70-105); Osmolality,Calculated 285 (280-300); Potassium 3.1 mEq/L (3.5-5.1); Sodium 139 mEq/L (136-145); eGFR For African Americans > 60 (> 60); eGFR For Non-African Americans > 60 (> 60)
[2017-11-05] MEDS ORDERED: Potassium Chloride 40 MEQ, Lidocaine 1% 2 ML in D5% in Water 500 ML IVPB ONE (09:40)
--- NOTE | 2017-11-05 09:44 | General Surgery Progress Note ---
<[place],Lorie Arnav - Last Filed: 11/05/17 09:41> Date of Encounter: 11/05/17 Time of Encounter: 09:30 - Assessment and Plan (1) Perforated appendicitis Current Visit: Yes Status: Acute POD #2 Laparoscopic appendectomy converted to open ileocectomy with Dr. Marrero Advance to clear liquids today IV fluids- decreased to 75ml/hour IV antibiotics- Zosyn Continue JADEN drain Daily dressing changes Supportive care and pain control- Scheduled ofirmfev and toradol in addition to prn medications; continue fentanyl patch Incentive Spirometer every 1 hours while awake GI/DVT prophylaxis Ambulate hallways TID with assistance Remove dee catheter today Repeat am labs (2) Leukocytosis Current Visit: Yes Status: Acute Improving WBC- 25.6>21.5>15.7 IV antibiotics- Zosyn Continue JADEN drain Repeat am labs Qualifiers: Leukocytosis type: other Qualified Code(s): D72.828 - Other elevated white blood cell count (3) Hypokalemia Current Visit: Yes Status: Acute Replace potassium- 3.1 today Repeat am labs (4) DVT prophylaxis Current Visit: Yes Status: Acute Heparin 5,000 units SQ twice daily for DVT prophylaxis Ambulate hallways TID with assistance Subjective Patient reports: no new complaints, feels better, still having pain, pain is less, flatus (Passed a small amount of flatus X 1), no bowel movement, fever ( Tmax 99.8; Tcurrent 98.2) Objective Vital Signs - Last 8 Hours Temp Pulse Resp BP Pulse Ox 11/05/17 07:00 98.2 F 86 18 115/70 94 11/05/17 05:29 99.8 F H 82 14 115/75 88 11/05/17 03:00 90 Intake and Output 11/04/17 11/05/17 11/05/17 23:59 07:59 15:59 Intake Total 1145 / 1145 1300 / 1300 Output Total 620 / 620 900 / 900 Balance 525 / 525 400 / 400 Intake: IV Fluids 1145 / 1145 1300 / 1300 0.9 % Sodium Chloride 1,000 ML 945 / 945 1000 / 1000 @ 135 mls/hr IVC .[id number] [facility] Rx #:[id number] Ofirmev 1,000 mg/100 ml 1,000 100 / 100 200 / 200 mg In 100 ml @ 400 mls/hr IVPB Q6H [facility] Rx#:[id number] Zosyn 3.375 GM In 0.9 % Sodium 100 / 100 100 / 100 Chloride (Mini-Bag +) 100 ML @ 25 mls/hr IVPB Q8HR [facility] Rx#: [id number] Oral 0 / 0 0 / 0 Output: Urine 0 / 0 200 / 200 Catheter 575 / 575 650 / 650 Wound Drainage 45 / 45 50 / 50 Right Lower Abdomen 45 / 45 50 / 50 Other: Weight 96.5 kg Blood Glucose* 70 Patient Weight 11/05/17 23:59 Weight 96.5 kg - General physical appearance well developed, well nourished, no distress - Eyes normal ocular movement - ENT normal mucosa, atraumatic, normocephalic - Neck Neck exam: trachea midline - Respiratory normal respiratory effort, clear to auscultation - Cardiovascular Cardiovascular exam: Present: RRR - Abdomen Abdomen: Present: bowel sounds present, soft, tender (expected post-operative tenderness), wound (JADEN drain to bulb suction with serousang. drainage noted ( approximately 60ml since midnight)) - Incision Incision: Present: clean and dry, intact, serosanguinous (drainage noted around JADEN drain) - Genitourinary other (dee catheter to SD with clear, yellow urine noted (650ml of UOP noted since midnight)) - Neurologic CN 2-12 grossly intact - Psychiatric oriented to time, oriented to person, oriented to place, speech is normal, memory intact - Labs 11/05/17 04:39 11/05/17 04:39 Diabetes panel 11/05/17 Range/Units 04:39 Sodium 139 (136-145) mEq/L Potassium 3.1 L (3.5-5.1) mEq/L Chloride 109 H (98-107) mEq/L Carbon Dioxide 20 L (23-29) mEq/L BUN 6 (6-20) mg/dL Creatinine 0.71 (0.70-1.30) mg/dL Glucose 81 (70-105) mg/dL Calcium 7.8 L (8.6-10.3) mg/dL Calcium panel 11/05/17 Range/Units 04:39 Calcium 7.8 L (8.6-10.3) mg/dL Pituitary panel 11/05/17 Range/Units 04:39 Sodium 139 (136-145) mEq/L Potassium 3.1 L (3.5-5.1) mEq/L Chloride 109 H (98-107) mEq/L Carbon Dioxide 20 L (23-29) mEq/L BUN 6 (6-20) mg/dL Creatinine 0.71 (0.70-1.30) mg/dL Glucose 81 (70-105) mg/dL Calcium 7.8 L (8.6-10.3) mg/dL Adrenal panel 11/05/17 Range/Units 04:39 Sodium 139 (136-145) mEq/L Potassium 3.1 L (3.5-5.1) mEq/L Chloride 109 H (98-107) mEq/L Carbon Dioxide 20 L (23-29) mEq/L BUN 6 (6-20) mg/dL Creatinine 0.71 (0.70-1.30) mg/dL Glucose 81 (70-105) mg/dL Calcium 7.8 L (8.6-10.3) mg/dL - VTE Documentation of Mechanical Device: Intermittent pneumatic compression device Consult Discharge Plan - Plan Referrals: Mariajose Reyes DO [Primary Care Provider] - - Attending Attestation For this encounter, I have reviewed the MELLOWING MACHINE OPERATOR or PA documentation, treatment plan, and medical decision making; and I have had face to face time with this patient. <Marlene Marrero - Last Filed: 11/05/17 14:47> Date of Encounter: 11/05/17 - Assessment and Plan (1) Leukocytosis Current Visit: Yes Status: Acute continued improvement cont abx Qualifiers: Leukocytosis type: other Qualified Code(s): D72.828 - Other elevated white blood cell count (2) Hyperlipidemia Current Visit: Yes Status: Chronic hold home meds Qualifiers: Hyperlipidemia type: unspecified Qualified Code(s): E78.5 - Hyperlipidemia , unspecified (3) Abdominal pain Current Visit: Yes Status: Acute prn pain control scheduled ofirm Qualifiers: Abdominal location: right lower quadrant Qualified Code(s): R10.31 - Right lower quadrant pain (4) Perforated appendicitis Current Visit: Yes Status: Acute passing some flatus, started sips clears continue abx prn pain control gi/dvt prophylaxis OOB to chair agressive pulmonary toilet (5) Seasonal allergies Current Visit: Yes Status: Chronic Qualifiers: Allergic rhinitis trigger: unspecified Qualified Code(s): J30.2 - Other seasonal allergic rhinitis Subjective Patient reports: feels better, still having pain, pain is less, flatus, no bowel movement, fever Objective Vital Signs - Last 8 Hours Temp Pulse Resp BP Pulse Ox 11/05/17 11:00 98.2 F 78 17 115/76 94 11/05/17 07:00 98.2 F 86 18 115/70 94 Intake and Output 11/04/17 11/05/17 11/05/17 23:59 07:59 15:59 Intake Total 1145 / 1145 1300 / 1300 250 / 250 Output Total 620 / 620 900 / 900 395 / 395 Balance 525 / 525 400 / 400 -145 / -145 Intake: IV Fluids 1145 / 1145 1300 / 1300 0.9 % Sodium Chloride 1,000 ML 945 / 945 1000 / 1000 @ 135 mls/hr IVC .Q7H25M [facility] Rx #:[id number] Ofirmev 1,000 mg/100 ml 1,000 100 / 100 200 / 200 mg In 100 ml @ 400 mls/hr IVPB Q6H [facility] Rx#:[id number] Zosyn 3.375 GM In 0.9 % Sodium 100 / 100 100 / 100 Chloride (Mini-Bag +) 100 ML @ 25 mls/hr IVPB Q8HR [facility] Rx#: [id number] Oral 0 / 0 0 / 0 250 / 250 Output: Urine 0 / 0 200 / 200 50 / 50 Catheter 575 / 575 650 / 650 325 / 325 Wound Drainage 45 / 45 50 / 50 20 / 20 Right Lower Abdomen 45 / 45 50 / 50 20 / 20 Other: Meal NPO Breakfast Weight 96.5 kg Blood Glucose* 70 Patient Weight 11/05/17 23:59 Weight 96.5 kg - General physical appearance well developed, well nourished, no distress - Eyes normal ocular movement - ENT normal mucosa, normocephalic - Neck Neck exam: trachea midline - Respiratory normal expansion, normal respiratory effort - Cardiovascular Cardiovascular exam: Present: RRR - Abdomen Abdomen: Present: bowel sounds present, soft, tender. Absent: guarding, rebound Additional Comments: JADEN serosang - Incision Incision: Present: clean and dry, intact - Integumentary no growths - Neurologic CN 2-12 grossly intact - Musculoskeletal normal posture - Psychiatric oriented to time, oriented to person, oriented to place, speech is normal, memory intact - Labs 11/05/17 04:39 11/05/17 04:39 Short CBC 11/05/17 Range/Units 04:39 WBC 15.7 H (4.3-11.1) K/mcL Hgb 12.7 L (12.9-16.9) g/dL Hct 38.5 (37.5-50.1) % Plt Count 246 (140-400) K/mcL Neutrophils # 11.6 H (1.6-8.9) K/mcL BMP 11/05/17 Range/Units 04:39 Sodium 139 (136-145) mEq/L Potassium 3.1 L (3.5-5.1) mEq/L Chloride 109 H (98-107) mEq/L Carbon Dioxide 20 L (23-29) mEq/L BUN 6 (6-20) mg/dL Creatinine 0.71 (0.70-1.30) mg/dL Glucose 81 (70-105) mg/dL Calcium 7.8 L (8.6-10.3) mg/dL Vital Signs Temp Pulse Resp BP Pulse Ox 11/05/17 11:00 98.2 F 78 17 115/76 94 11/05/17 07:00 98.2 F 86 18 115/70 94 11/05/17 05:29 99.8 F H 82 14 115/75 88 11/05/17 03:00 90 11/04/17 20:17 98.5 F 82 16 114/66 90 11/04/17 19:45 90 11/04/17 15:08 99.7 F H 82 15 98/58 93 Intake and Output 11/04/17 11/05/17 11/05/17 23:59 07:59 15:59 Intake Total 1145 / 1145 1300 / 1300 250 / 250 Output Total 620 / 620 900 / 900 395 / 395 Balance 525 / 525 400 / 400 -145 / -145 Intake: IV Fluids 1145 / 1145 1300 / 1300 0.9 % Sodium Chloride 1,000 ML 945 / 945 1000 / 1000 @ 135 mls/hr IVC .Q7H25M [facility] Rx #:[id number] Ofirmev 1,000 mg/100 ml 1,000 100 / 100 200 / 200 mg In 100 ml @ 400 mls/hr IVPB Q6H [facility] Rx#:[id number] Zosyn 3.375 GM In 0.9 % Sodium 100 / 100 100 / 100 Chloride (Mini-Bag +) 100 ML @ 25 mls/hr IVPB Q8HR [facility] Rx#: [id number] Oral 0 / 0 0 / 0 250 / 250 Output: Urine 0 / 0 200 / 200 50 / 50 Catheter 575 / 575 650 / 650 325 / 325 Wound Drainage 45 / 45 50 / 50 20 / 20 Right Lower Abdomen 45 / 45 50 / 50 20 / 20 Other: Meal NPO Breakfast Weight 96.5 kg Blood Glucose* 70 Patient Weight 11/05/17 23:59 Weight 96.5 kg - Attending Attestation I have personally performed a face to face evaluation on this patient. I have reviewed and agree with the care plan. History and Exam by me shows:
[2017-11-05] MEDS: Pantoprazole 40 MG VIAL IVP SCH (10:27)
[2017-11-05] MEDS: OXYCODONE Oral CONC 10 MG/0.5 ML ORAL.SYG SL PRN (21:03)
[2017-11-06] MEDS: Acetaminophen IV 1,000 MG/100 ML INFUS..BTL IVPB SCH ×4 (00:10→06:13)
[2017-11-06] MEDS: Ketorolac 15 MG/ML VIAL IVP SCH ×4 (00:10→17:26)
[2017-11-06] MEDS: Piperacillin/Tazobactam 3.375 GM in 0.9 % Sodium Chloride Mini Bag 100 ML IVPB SCH ×4 (00:11→23:41)
[2017-11-06] MEDS: 0.9 % Sodium Chloride 1,000 ML IVC SCH ×2 (03:03→06:14)
[2017-11-06] MEDS: OXYCODONE Oral CONC 10 MG/0.5 ML ORAL.SYG SL PRN ×3 (03:47→21:12)
[2017-11-06 06:04] LABS: Basophils # 0.1 K/mcL (0.0-0.2); Basophils % 0.4 %; Eosinophils # 0.3 K/mcL (0.0-0.6); Eosinophils % 2.3 %; Hematocrit 36.7 % (37.5-50.1); Hemoglobin 12.5 g/dL (12.9-16.9); Immature Granulocytes % 0.7 % (0-4); Lymphocytes # 2.1 K/mcL (0.6-4.6); Lymphocytes % 15.6 %; Mean Corpuscular HGB Conc 34.1 g/dL (31.6-35.5); Mean Corpuscular Hemoglobin 29.2 pg (28.0-33.3); Mean Corpuscular Volume 85.7 fL (83.0-100.0); Mean Platelet Volume 10.5 fL (9.4-12.4); Monocytes # 1.5 K/mcL (0.0-1.3); Monocytes % 10.9 %; Neutrophils # 9.6 K/mcL (1.6-8.9); Platelet Count 280 K/mcL (140-400); Red Blood Count 4.28 M/mcL (4.19-5.50); Red Cell Distribution Width 13.7 % (11.5-14.5); Segmented Neutrophils % 70.1 %
[2017-11-06] MEDS: *HR* Heparin 5,000 UNIT/ML VIAL SQ SCH ×2 (06:12→17:27)
[2017-11-06 06:22] LABS: BUN/Creatinine Ratio 6 (6-26); Blood Urea Nitrogen 4 mg/dL (6-20); Calcium 7.9 mg/dL (8.6-10.3); Carbon Dioxide 21 mEq/L (23-29); Chloride 107 mEq/L (98-107); Glucose 85 mg/dL (70-105); Osmolality,Calculated 280 (280-300); Sodium 137 mEq/L (136-145); eGFR For African Americans > 60 (> 60); eGFR For Non-African Americans > 60 (> 60)
[2017-11-06] MEDS: Pantoprazole 40 MG VIAL IVP SCH (08:53)
[2017-11-06 09:30] LABS: Phosphorous 1.5 mg/dL (2.7-4.5)
[2017-11-06] MEDS ORDERED: Potassium Phosphate 44 MEQ in 0.9 % Sodium Chloride 250 ML IVPB ONE ×2 (09:57→11:11)
[2017-11-06] MEDS ORDERED: D5% in 0.45% NACL w KCl 20 MEQ/1,000 ML MLS IVC SCH (10:00)
--- NOTE | 2017-11-06 11:06 | General Surgery Progress Note ---
<RosauraLorie Arnav - Last Filed: 11/06/17 11:07> Date of Encounter: 11/06/17 Time of Encounter: 10:45 - Assessment and Plan (1) Perforated appendicitis Current Visit: Yes Status: Acute POD #3 Laparoscopic appendectomy converted to open ileocectomy with Dr. Marrero Pathology pending Advance to full liquids today IV fluids- 75ml/hour IV antibiotics- Zosyn Continue JADEN drain Daily dressing changes Supportive care and pain control- Scheduled ofirmfev and toradol in addition to prn medications; continue fentanyl patch Incentive Spirometer every 1 hours while awake GI/DVT prophylaxis Ambulate hallways TID with assistance Repeat am labs (2) Leukocytosis Current Visit: Yes Status: Acute Improving WBC- 25.6>21.5>15.7>13.7 IV antibiotics- Zosyn Continue JADEN drain Repeat am labs Qualifiers: Leukocytosis type: other Qualified Code(s): D72.828 - Other elevated white blood cell count (3) Hypokalemia Current Visit: Yes Status: Acute Replace potassium- 3.0 today Repeat am labs (4) DVT prophylaxis Current Visit: Yes Status: Acute Heparin 5,000 units SQ twice daily for DVT prophylaxis Ambulate hallways TID with assistance Subjective Patient reports: no new complaints, feels better, still having pain, pain is less, tolerating liquids well, voiding w/o difficulty, flatus, no bowel movement , afebrile Objective Vital Signs - Last 8 Hours Temp Pulse Resp BP Pulse Ox 11/06/17 10:22 98.6 F 71 14 127/81 93 11/06/17 07:02 98.4 F 71 16 103/62 92 11/06/17 03:36 98.5 F 69 15 121/68 93 Intake and Output 11/05/17 11/06/17 11/06/17 23:59 07:59 15:59 Intake Total 1200 / 1200 2000 / 2000 240 / 240 Output Total 700 / 700 900 / 900 400 / 400 Balance 500 / 500 1100 / 1100 -160 / -160 Intake: IV Fluids 1200 / 1200 1300 / 1300 0.9 % Sodium Chloride 1,000 ML 1000 / 1000 1000 / 1000 @ 75 mls/hr IVC .[id number] [facility] Rx #:[id number] Ofirmev 1,000 mg/100 ml 1,000 100 / 100 200 / 200 mg In 100 ml @ 400 mls/hr IVPB Q6H [facility] Rx#:[id number] Zosyn 3.375 GM In 0.9 % Sodium 100 / 100 100 / 100 Chloride (Mini-Bag +) 100 ML @ 25 mls/hr IVPB Q8HR [facility] Rx#: [id number] Oral 0 / 0 700 / 700 240 / 240 Output: Urine 700 / 700 900 / 900 400 / 400 Wound Drainage 0 / 0 0 / 0 Right Lower Abdomen 0 / 0 0 / 0 Other: Meal Dinner Breakfast Percent of Meal Consumed 5% Weight 96.3 kg Patient Weight 11/06/17 23:59 Weight 96.3 kg - General physical appearance well developed, well nourished, no distress - Eyes normal ocular movement - ENT normal mucosa, atraumatic, normocephalic - Neck Neck exam: trachea midline - Respiratory normal respiratory effort, clear to auscultation - Cardiovascular Cardiovascular exam: Present: RRR - Abdomen Abdomen: Present: bowel sounds present, soft, tender (Expected postoperative tenderness), wound (JADEN drain to bulb suction with minimal amount of serous drainage noted (drainage noted around insertion site)) - Neurologic CN 2-12 grossly intact - Psychiatric oriented to time, oriented to person, oriented to place, speech is normal, memory intact - Labs 11/06/17 04:12 11/06/17 04:12 Diabetes panel 11/06/17 Range/Units 04:12 Sodium 137 (136-145) mEq/L Potassium 3.0 L (3.5-5.1) mEq/L Chloride 107 (98-107) mEq/L Carbon Dioxide 21 L (23-29) mEq/L BUN 4 L (6-20) mg/dL Creatinine 0.70 (0.70-1.30) mg/dL Glucose 85 (70-105) mg/dL Calcium 7.9 L (8.6-10.3) mg/dL Calcium panel 11/06/17 Range/Units 04:12 Calcium 7.9 L (8.6-10.3) mg/dL Phosphorus 1.5 L (2.7-4.5) mg/dL Pituitary panel 11/06/17 Range/Units 04:12 Sodium 137 (136-145) mEq/L Potassium 3.0 L (3.5-5.1) mEq/L Chloride 107 (98-107) mEq/L Carbon Dioxide 21 L (23-29) mEq/L BUN 4 L (6-20) mg/dL Creatinine 0.70 (0.70-1.30) mg/dL Glucose 85 (70-105) mg/dL Calcium 7.9 L (8.6-10.3) mg/dL Adrenal panel 11/06/17 Range/Units 04:12 Sodium 137 (136-145) mEq/L Potassium 3.0 L (3.5-5.1) mEq/L Chloride 107 (98-107) mEq/L Carbon Dioxide 21 L (23-29) mEq/L BUN 4 L (6-20) mg/dL Creatinine 0.70 (0.70-1.30) mg/dL Glucose 85 (70-105) mg/dL Calcium 7.9 L (8.6-10.3) mg/dL - VTE Documentation of Mechanical Device: Intermittent pneumatic compression device Consult Discharge Plan - Plan Referrals: Mariajose Reyes DO [Primary Care Provider] - - Attending Attestation For this encounter, I have reviewed the SURGICAL APPLIANCE FITTER or PA documentation, treatment plan, and medical decision making; and I have had face to face time with this patient. <Marlene Marrero - Last Filed: 11/06/17 20:30> Date of Encounter: 11/06/17 - Assessment and Plan (1) Leukocytosis Current Visit: Yes Status: Acute improving, continue antibiotics JADEN with serosang drainage, less today trend wbc, is decreasing daily Qualifiers: Leukocytosis type: other Qualified Code(s): D72.828 - Other elevated white blood cell count (2) Hyperlipidemia Current Visit: Yes Status: Chronic Qualifiers: Hyperlipidemia type: unspecified Qualified Code(s): E78.5 - Hyperlipidemia , unspecified (3) Abdominal pain Current Visit: Yes Status: Acute prn pain control fentanyl patch Qualifiers: Abdominal location: right lower quadrant Qualified Code(s): R10.31 - Right lower quadrant pain (4) Perforated appendicitis Current Visit: Yes Status: Acute advanced diet to fulls sliv pain control ok to shower ambulate gi/dvt prophylaxis pulmonary toilet continue abx (5) Seasonal allergies Current Visit: Yes Status: Chronic ok to start home meds Qualifiers: Allergic rhinitis trigger: unspecified Qualified Code(s): J30.2 - Other seasonal allergic rhinitis Subjective Patient reports: feels better, still having pain, pain is less, tolerating liquids well, voiding w/o difficulty, flatus, no bowel movement, afebrile Objective Vital Signs - Last 8 Hours Temp Pulse Resp BP Pulse Ox 11/06/17 14:23 98.2 F 76 16 127/78 94 Intake and Output 11/06/17 11/06/17 11/06/17 07:59 15:59 23:59 Intake Total 1999 / 1999 340 / 340 Output Total 900 / 900 650 / 650 310 / 310 Balance 1100 / 1100 -310 / -310 -310 / -310 Intake: IV Fluids 1300 / 1300 100 / 100 0.9 % Sodium Chloride 1,000 ML 1000 / 1000 @ 75 mls/hr IVC .[id number] [facility] Rx #:[id number] Ofirmev 1,000 mg/100 ml 1,000 200 / 200 mg In 100 ml @ 400 mls/hr IVPB Q6H [facility] Rx#:[id number] Zosyn 3.375 GM In 0.9 % Sodium 100 / 100 100 / 100 Chloride (Mini-Bag +) 100 ML @ 25 mls/hr IVPB Q8HR [facility] Rx#: [id number] Oral 700 / 700 240 / 240 Output: Urine 900 / 900 650 / 650 300 / 300 Wound Drainage 0 / 0 0 / 0 10 / 10 Right Lower Abdomen 0 / 0 0 / 0 10 / 10 Other: Meal Breakfast REFUSED DINNER Weight 96.3 kg Patient Weight 11/06/17 23:59 Weight 96.3 kg - General physical appearance well developed, well nourished, no distress - Eyes PERRL, normal ocular movement - ENT normal mucosa, normocephalic - Neck Neck exam: trachea midline - Respiratory normal expansion, clear to auscultation - Cardiovascular Cardiovascular exam: Present: RRR - Abdomen Abdomen: Present: bowel sounds present, soft, tender, wound. Absent: distended , guarding, rebound - Incision Incision: Present: clean and dry, intact - Integumentary no rash, no growths - Neurologic CN 2-12 grossly intact - Musculoskeletal normal posture - Psychiatric oriented to time, oriented to person, oriented to place, speech is normal, memory intact - Labs 11/06/17 04:12 11/06/17 04:12 Diabetes panel 11/06/17 Range/Units 04:12 Sodium 137 (136-145) mEq/L Potassium 3.0 L (3.5-5.1) mEq/L Chloride 107 (98-107) mEq/L Carbon Dioxide 21 L (23-29) mEq/L BUN 4 L (6-20) mg/dL Creatinine 0.70 (0.70-1.30) mg/dL Glucose 85 (70-105) mg/dL Calcium 7.9 L (8.6-10.3) mg/dL Calcium panel 11/06/17 Range/Units 04:12 Calcium 7.9 L (8.6-10.3) mg/dL Phosphorus 1.5 L (2.7-4.5) mg/dL Pituitary panel 11/06/17 Range/Units 04:12 Sodium 137 (136-145) mEq/L Potassium 3.0 L (3.5-5.1) mEq/L Chloride 107 (98-107) mEq/L Carbon Dioxide 21 L (23-29) mEq/L BUN 4 L (6-20) mg/dL Creatinine 0.70 (0.70-1.30) mg/dL Glucose 85 (70-105) mg/dL Calcium 7.9 L (8.6-10.3) mg/dL Adrenal panel 11/06/17 Range/Units 04:12 Sodium 137 (136-145) mEq/L Potassium 3.0 L (3.5-5.1) mEq/L Chloride 107 (98-107) mEq/L Carbon Dioxide 21 L (23-29) mEq/L BUN 4 L (6-20) mg/dL Creatinine 0.70 (0.70-1.30) mg/dL Glucose 85 (70-105) mg/dL Calcium 7.9 L (8.6-10.3) mg/dL - Attending Attestation I have personally performed a face to face evaluation on this patient. I have reviewed and agree with the care plan. History and Exam by me shows:
[2017-11-07] MEDS: OXYCODONE Oral CONC 10 MG/0.5 ML ORAL.SYG SL PRN (01:20)
[2017-11-07] MEDS: *HR* Heparin 5,000 UNIT/ML VIAL SQ SCH ×2 (05:29→18:44)
[2017-11-07 07:29] LABS: Basophils # 0.1 K/mcL (0.0-0.2); Basophils % 0.4 %; Eosinophils # 0.1 K/mcL (0.0-0.6); Eosinophils % 0.9 %; Hematocrit 39.8 % (37.5-50.1); Hemoglobin 13.3 g/dL (12.9-16.9); Immature Granulocytes % 1.2 % (0-4); Lymphocytes # 1.8 K/mcL (0.6-4.6); Lymphocytes % 11.3 %; Mean Corpuscular HGB Conc 33.4 g/dL (31.6-35.5); Mean Corpuscular Hemoglobin 28.7 pg (28.0-33.3); Monocytes # 1.8 K/mcL (0.0-1.3); Monocytes % 11.5 %; Neutrophils # 11.8 K/mcL (1.6-8.9); Platelet Count 346 K/mcL (140-400); Red Blood Count 4.63 M/mcL (4.19-5.50); Red Cell Distribution Width 13.9 % (11.5-14.5); Segmented Neutrophils % 74.7 %
[2017-11-07 09:04] LABS: BUN/Creatinine Ratio 13 (6-26); Blood Urea Nitrogen 8 mg/dL (6-20); Calcium 8.2 mg/dL (8.6-10.3); Carbon Dioxide 20 mEq/L (23-29); Chloride 104 mEq/L (98-107); Glucose 113 mg/dL (70-105); Osmolality,Calculated 283 (280-300); Phosphorous 3.4 mg/dL (2.7-4.5); Potassium 3.5 mEq/L (3.5-5.1); Sodium 137 mEq/L (136-145); eGFR For African Americans > 60 (> 60); eGFR For Non-African Americans > 60 (> 60)
[2017-11-07] MEDS: Pantoprazole 40 MG VIAL IVP SCH (09:44)
[2017-11-07] MEDS: Piperacillin/Tazobactam 3.375 GM in 0.9 % Sodium Chloride Mini Bag 100 ML IVPB SCH ×3 (09:44→23:52)
[2017-11-07] MEDS: *HR* FentaNYL PATCH 25 MCG PATCH TD SCH (09:45)
--- NOTE | 2017-11-07 10:02 | General Surgery Progress Note ---
<Michelle Clark Lawrence - Last Filed: 11/07/17 10:37> Date of Encounter: 11/07/17 Time of Encounter: 09:45 - Assessment and Plan (1) Perforated appendicitis Current Visit: Yes Status: Acute Date of procedure: 11/03/17 Pre-op diagnosis: perforated appendicitis Post-op diagnosis: same Procedure: Laparoscopic appendectomy converted to open ileocectomy Complications: none immediate Anesthesia: GETA Surgeon: Marlene Marrero POD #4 as above. See physical exam for abdominal assessment. Noted interval increase in white blood cell count while on IV Zosyn. He is afebrile. Plan: -continue supportive care and discomfort management -continue full liquid diet. Will not advance today given his complaints of dyspepsia and lack of appetite -will add stool softener/MiraLAX -Tums for dyspepsia -will reorder scheduled toradol Q6 hours IV as patient states his abdominal discomfort significantly increased after this was stopped. Change sublingual oxycodone to Percocet 7.5/325 mg Q6 hours PRN for moderate to severe pain. Okay to premedicate with IV Zofran to prevent nausea. -Incentive spirometry -continue G.I. and DVT prophylaxis -area of midline incision was opened and packed for wicking purposes. If WBC is not improved tomorrow or if patient clinically declines today, will consider changing Zosyn to dual therapy: Cipro and Flagyl. -Continue IV antibiotics -ambulate at least 3 times daily and out of bed to chair for all meals. Do not eat meals while in bed. (2) Surgical complication involving skin Current Visit: Yes Status: Acute Postsurgical cellulitis/infection as expected given his findings of perforated appendix during surgical intervention. 2 wendie were removed today 1 superior to the umbilicus and one below the umbilicus. In the superior region, there was a small amount of cloudy/bloody drainage returned. In the inferior area, there was a large amount of purulent and foul-smelling material returned. Both areas were packed with 1/4 inch playing gauze and covered with a dry dressing. Patient stated a notable decrease in abdominal pressure and tolerated the procedure without difficulty. He notes that he will be unable to complete the packing himself as he has a fear of blood and medical procedures which typically leads to syncope. His dad is elderly and is unable to complete this packing. We will consult social work for home health referral for wound packing. Plan: Daily wound care Remove dressings and packing. Shower daily with antibacterial soap. Pat dry. JADEN drain: cover with a split gauze and tape to secure. Do not let the JADEN drain dangle. Secure with a safety pin and when showering hitting the JADEN drain on a lanyard. Midline: repack the open areas with 1/4 inch playing gauze for wicking purposes. Cover with a dry dressing. Tape to secure. Qualifiers: Surgical complication type: other Timing of complication: postoperative complication Qualified Code(s): L76.82 - Other postprocedural complications of skin and subcutaneous tissue (3) Leukocytosis Current Visit: Yes Status: Acute Continue IV antibiotics. See assessment and plan above Qualifiers: Leukocytosis type: other Qualified Code(s): D72.828 - Other elevated white blood cell count (4) DVT prophylaxis Current Visit: Yes Status: Acute C assessment and plan above Subjective Patient reports: still having pain, pain is less, voiding w/o difficulty, flatus , no bowel movement, afebrile, other Narrative: Del reports decreased appetite, continued abdominal discomfort, nausea, and some swelling in the abdomen. He denies fever or chills. He denies vomiting. He reports feeling of heartburn and reflux. He states his abdominal discomfort is not well controlled after the Toradol was completed and the sublingual oxycodone made him to sick at his stomach. Objective Vital Signs - Last 8 Hours Temp Pulse Resp BP Pulse Ox 11/07/17 05:19 97.7 F 75 16 137/78 95 Intake and Output 11/06/17 11/07/17 11/07/17 23:59 07:59 15:59 Intake Total 220 / 220 850 / 850 240 / 240 Output Total 710 / 710 300 / 300 Balance -490 / -490 550 / 550 240 / 240 Intake: IV Fluids 100 / 100 100 / 100 Zosyn 3.375 GM In 0.9 % Sodium 100 / 100 100 / 100 Chloride (Mini-Bag +) 100 ML @ 25 mls/hr IVPB Q8HR [facility] Rx#: [id number] Oral 120 / 120 750 / 750 240 / 240 Output: Urine 700 / 700 300 / 300 Wound Drainage 10 / 10 0 / 0 Right Lower Abdomen 10 / 10 0 / 0 Other: Meal REFUSED DINNER Full Weight 96.4 kg Patient Weight 11/07/17 23:59 Weight 96.4 kg VITAL SIGNS: Reviewed. See [facility] GENERAL: In no apparent distress. HEENT: Normocephalic, atraumatic, pupils are equal and reactive, extraocular motions intact, oropharynx is pink and moist, there is no neck adenopathy or JVD noted. CHEST/RESPIRATORY: The thorax is free from signs of trauma. Lung sounds: clear to auscultation, normal respiratory effort CARDIAC: Regular rate and rhythm. Normal S1 and S2, without murmurs, gallops, or rubs. VASCULAR: No Edema. 2+ peripheral pulses. ABDOMEN: soft, hypoactive bowel sounds, mild distention, some ecchymosis consistent with heparin injections INCISION: Surgical incision is clean, dry, and intact. There are is some erythema with blanching noted along the midline incision. No drainage noted at present. WOUNDS/DRAINS: right lower quadrant JADEN drain with clear straw colored drainage both in the JADEN and leaking around the drain. MUSCULOSKELETAL: Good range of motion of all major joints. Extremities without clubbing, cyanosis or edema. NEUROLOGIC EXAM: Alert and oriented x 3. Speech normal. Follows commands. PSYCHIATRIC: Mood normal. SKIN: No rash or lesions. - Labs 11/07/17 06:46 11/07/17 06:46 Diabetes panel 11/07/17 Range/Units 06:46 Sodium 137 (136-145) mEq/L Potassium 3.5 (3.5-5.1) mEq/L Chloride 104 (98-107) mEq/L Carbon Dioxide 20 L (23-29) mEq/L BUN 8 (6-20) mg/dL Creatinine 0.63 L (0.70-1.30) mg/dL Glucose 113 H (70-105) mg/dL Calcium 8.2 L (8.6-10.3) mg/dL Calcium panel 11/07/17 Range/Units 06:46 Calcium 8.2 L (8.6-10.3) mg/dL Phosphorus 3.4 (2.7-4.5) mg/dL Pituitary panel 11/07/17 Range/Units 06:46 Sodium 137 (136-145) mEq/L Potassium 3.5 (3.5-5.1) mEq/L Chloride 104 (98-107) mEq/L Carbon Dioxide 20 L (23-29) mEq/L BUN 8 (6-20) mg/dL Creatinine 0.63 L (0.70-1.30) mg/dL Glucose 113 H (70-105) mg/dL Calcium 8.2 L (8.6-10.3) mg/dL Adrenal panel 11/07/17 Range/Units 06:46 Sodium 137 (136-145) mEq/L Potassium 3.5 (3.5-5.1) mEq/L Chloride 104 (98-107) mEq/L Carbon Dioxide 20 L (23-29) mEq/L BUN 8 (6-20) mg/dL Creatinine 0.63 L (0.70-1.30) mg/dL Glucose 113 H (70-105) mg/dL Calcium 8.2 L (8.6-10.3) mg/dL - VTE Documentation of Mechanical Device: Intermittent pneumatic compression device Consult Discharge Plan - Plan Referrals: Mariajose Reyes DO [Primary Care Provider] - <Marlene Marrero - Last Filed: 11/07/17 12:09> Date of Encounter: 11/07/17 - Assessment and Plan (1) Leukocytosis Current Visit: Yes Status: Acute elevated today nurse practicioner opened midline and got purulent drainage from subcut area, packed Qualifiers: Leukocytosis type: other Qualified Code(s): D72.828 - Other elevated white blood cell count (2) Hyperlipidemia Current Visit: Yes Status: Chronic hold home meds Qualifiers: Hyperlipidemia type: unspecified Qualified Code(s): E78.5 - Hyperlipidemia , unspecified (3) Abdominal pain Current Visit: Yes Status: Acute prn pain control Qualifiers: Abdominal location: right lower quadrant Qualified Code(s): R10.31 - Right lower quadrant pain (4) Perforated appendicitis Current Visit: Yes Status: Acute (5) Seasonal allergies Current Visit: Yes Status: Chronic Qualifiers: Allergic rhinitis trigger: unspecified Qualified Code(s): J30.2 - Other seasonal allergic rhinitis Subjective Patient reports: feels better, still having pain, tolerating liquids well ( tolerating fulls), voiding w/o difficulty, flatus, no bowel movement, afebrile Objective Vital Signs - Last 8 Hours Temp Pulse Resp BP Pulse Ox 11/07/17 11:14 98.2 F 57 16 119/76 94 11/07/17 05:19 97.7 F 75 16 137/78 95 Intake and Output 11/06/17 11/07/17 11/07/17 23:59 07:59 15:59 Intake Total 220 / 220 850 / 850 240 / 240 Output Total 710 / 710 300 / 300 100 / 100 Balance -490 / -490 550 / 550 140 / 140 Intake: IV Fluids 100 / 100 100 / 100 Zosyn 3.375 GM In 0.9 % Sodium 100 / 100 100 / 100 Chloride (Mini-Bag +) 100 ML @ 25 mls/hr IVPB Q8HR [facility] Rx#: [id number] Oral 120 / 120 750 / 750 240 / 240 Output: Urine 700 / 700 300 / 300 100 / 100 Wound Drainage 10 / 10 0 / 0 0 / 0 Right Lower Abdomen 10 / 10 0 / 0 0 / 0 Other: Meal REFUSED DINNER Full Weight 96.4 kg Patient Weight 11/07/17 23:59 Weight 96.4 kg - General physical appearance well developed, no distress - Eyes PERRL, normal ocular movement - ENT normal mucosa - Neck Neck exam: trachea midline - Respiratory normal expansion, clear to auscultation - Cardiovascular Cardiovascular exam: Present: RRR - Abdomen Abdomen: Present: bowel sounds present, soft, tender (appropriate post op tenderness). Absent: distended, guarding, rebound - Incision Incision: Present: red, clean and dry - Integumentary no rash, no growths - Neurologic CN 2-12 grossly intact - Musculoskeletal normal posture - Psychiatric oriented to time, oriented to person, oriented to place, speech is normal, memory intact - Labs 11/07/17 06:46 11/07/17 06:46 Diabetes panel 11/07/17 Range/Units 06:46 Sodium 137 (136-145) mEq/L Potassium 3.5 (3.5-5.1) mEq/L Chloride 104 (98-107) mEq/L Carbon Dioxide 20 L (23-29) mEq/L BUN 8 (6-20) mg/dL Creatinine 0.63 L (0.70-1.30) mg/dL Glucose 113 H (70-105) mg/dL Calcium 8.2 L (8.6-10.3) mg/dL Calcium panel 11/07/17 Range/Units 06:46 Calcium 8.2 L (8.6-10.3) mg/dL Phosphorus 3.4 (2.7-4.5) mg/dL Pituitary panel 11/07/17 Range/Units 06:46 Sodium 137 (136-145) mEq/L Potassium 3.5 (3.5-5.1) mEq/L Chloride 104 (98-107) mEq/L Carbon Dioxide 20 L (23-29) mEq/L BUN 8 (6-20) mg/dL Creatinine 0.63 L (0.70-1.30) mg/dL Glucose 113 H (70-105) mg/dL Calcium 8.2 L (8.6-10.3) mg/dL Adrenal panel 11/07/17 Range/Units 06:46 Sodium 137 (136-145) mEq/L Potassium 3.5 (3.5-5.1) mEq/L Chloride 104 (98-107) mEq/L Carbon Dioxide 20 L (23-29) mEq/L BUN 8 (6-20) mg/dL Creatinine 0.63 L (0.70-1.30) mg/dL Glucose 113 H (70-105) mg/dL Calcium 8.2 L (8.6-10.3) mg/dL Vital Signs Temp Pulse Resp BP Pulse Ox 11/07/17 11:14 98.2 F 57 16 119/76 94 11/07/17 05:19 97.7 F 75 16 137/78 95 11/06/17 23:41 97.8 F 75 16 132/77 95 11/06/17 20:39 98.7 F 71 16 138/73 96 11/06/17 14:23 98.2 F 76 16 127/78 94 Intake and Output 11/06/17 11/07/17 11/07/17 23:59 07:59 15:59 Intake Total 220 / 220 850 / 850 240 / 240 Output Total 710 / 710 300 / 300 100 / 100 Balance -490 / -490 550 / 550 140 / 140 Intake: IV Fluids 100 / 100 100 / 100 Zosyn 3.375 GM In 0.9 % Sodium 100 / 100 100 / 100 Chloride (Mini-Bag +) 100 ML @ 25 mls/hr IVPB Q8HR [facility] Rx#: [id number] Oral 120 / 120 750 / 750 240 / 240 Output: Urine 700 / 700 300 / 300 100 / 100 Wound Drainage 0 / 0 0 / 0 Right Lower Abdomen 0 / 0 0 / 0 Other: Meal REFUSED DINNER Full Weight 96.4 kg Patient Weight 11/07/17 23:59 Weight 96.4 kg - Attending Attestation I have personally performed a face to face evaluation on this patient. I have reviewed and agree with the care plan. History and Exam by me shows:
[2017-11-07] MEDS ORDERED: Ondansetron 4 MG/2 ML VIAL IVP PRN (10:32)
[2017-11-07] MEDS: Ketorolac 15 MG/ML VIAL IVP SCH ×3 (12:20→23:51)
[2017-11-07] MEDS: *HR* OxyCODONE/APAP 7.5/325 TABLET PO PRN (17:04)
[2017-11-08] MEDS: *HR* OxyCODONE/APAP 7.5/325 TABLET PO PRN ×3 (03:51→20:49)
[2017-11-08] MEDS: *HR* Heparin 5,000 UNIT/ML VIAL SQ SCH ×2 (06:17→17:11)
[2017-11-08] MEDS: Ketorolac 15 MG/ML VIAL IVP SCH ×3 (06:18→17:11)
[2017-11-08 07:05] LABS: BUN/Creatinine Ratio 12 (6-26); Blood Urea Nitrogen 10 mg/dL (6-20); Calcium 8.1 mg/dL (8.6-10.3); Carbon Dioxide 28 mEq/L (23-29); Chloride 102 mEq/L (98-107); Glucose 93 mg/dL (70-105); Magnesium 1.9 mg/dL (1.6-2.6); Osmolality,Calculated 285 (280-300); Phosphorous 3.8 mg/dL (2.7-4.5); Potassium 3.2 mEq/L (3.5-5.1); Sodium 138 mEq/L (136-145); eGFR For African Americans > 60 (> 60); eGFR For Non-African Americans > 60 (> 60)
[2017-11-08 07:56] LABS: Basophils # 0.1 K/mcL (0.0-0.2); Basophils % 0.5 %; Eosinophils # 0.3 K/mcL (0.0-0.6); Eosinophils % 2.8 %; Hematocrit 41.3 % (37.5-50.1); Immature Granulocytes % 1.3 % (0-4); Lymphocytes # 2.5 K/mcL (0.6-4.6); Mean Corpuscular HGB Conc 33.9 g/dL (31.6-35.5); Mean Corpuscular Volume 85.7 fL (83.0-100.0); Monocytes # 1.5 K/mcL (0.0-1.3); Monocytes % 12.8 %; Neutrophils # 7.4 K/mcL (1.6-8.9); Platelet Count 390 K/mcL (140-400); Red Blood Count 4.82 M/mcL (4.19-5.50); Red Cell Distribution Width 13.8 % (11.5-14.5); Segmented Neutrophils % 61.6 %
[2017-11-08] MEDS: Loratadine 10 MG TABLET PO SCH (08:30)
[2017-11-08] MEDS: Piperacillin/Tazobactam 3.375 GM in 0.9 % Sodium Chloride Mini Bag 100 ML IVPB SCH ×2 (08:30→17:11)
[2017-11-08] MEDS: Pantoprazole 40 MG VIAL IVP SCH (08:30)
[2017-11-08] MEDS ORDERED: Potassium Chloride 40 MEQ, Lidocaine 1% 2 ML in D5% in Water 500 ML IVPB ONE (08:49)
[2017-11-08] MEDS ORDERED: Bisacodyl 10 MG RECTAL SUPPOSITORY RC STA (08:50)
--- NOTE | 2017-11-08 09:33 | General Surgery Progress Note ---
Addendum entered and electronically signed by Michelle Clark CNP 11/08/17 10: 33: Urine is concentrated, but without evidence of UTI. Patient has had decreased oral intake for the last 48 hours. Will give 1 L bolus over 4 hours today. KUB with postoperative ileus. Given that patient has hypoactive bowel sounds, minimal distention, reports small amount of flatus, and denies nausea or vomiting, we will attempt conservative management and stimulate bowel motility. Will decrease diet to clear liquids while attempting bowel motility as directed below. If patient begins to have nausea and vomiting, he may need NG tube replaced for postoperative ileus. Will continue to monitor. Will continue to monitor. Original Note: <Michelle Clark - Last Filed: 11/08/17 09:30> Date of Encounter: 11/08/17 Time of Encounter: 08:00 - Assessment and Plan (1) Perforated appendicitis Current Visit: Yes Status: Acute Date of procedure: 11/03/17 Pre-op diagnosis: perforated appendicitis Post-op diagnosis: same Procedure: Laparoscopic appendectomy converted to open ileocectomy Complications: none immediate Anesthesia: GETA Surgeon: Marlene Marrero POD #5 as above. See physical exam for abdominal assessment. He states his abdominal discomfort is that are managed on the current regimen. Suspect mild postoperative ileus versus decreased bowel motility from narcotic use during this hospital stay. Will attempt more aggressive bowel motility including rectal laxative x1 today. Plan: -continue supportive care and discomfort management -continue full liquid diet. Advancement of diet pending BM. -Continue miralax. Will obtain KUB and add Dulcolax suppository. -Tums for dyspepsia -Continue scheduled toradol (will transition to ibuprofen pending bowel function ); Continue PRN percocet 7.5 mg. Will d/c fentanyl patch after 2 doses (last dose placed 11/07/2017) in an effort to step-down pain management. -Okay to premedicate with IV Zofran to prevent nausea. -Incentive spirometry -continue G.I. and DVT prophylaxis -area of midline incision was opened and packed for wicking purposes. WBC is improved. Continue IV Zosyn. -Reinforced that patient needs to ambulate at least 3 times daily and out of bed to chair for all meals. Do not eat meals while in bed. (2) Surgical complication involving skin Current Visit: Yes Status: Acute Postsurgical cellulitis/infection as expected given his findings of perforated appendix during surgical intervention. 2 wendie were removed 1 superior to the umbilicus and one inferior to the umbilicus. In the superior region, there was a small amount of cloudy/bloody drainage returned. In the inferior area, there was a large amount of purulent and foul-smelling material returned. Both areas were packed with 1/4 inch playing gauze and covered with a dry dressing. Patient stated a notable decrease in abdominal pressure and tolerated the procedure without difficulty. He notes that he will be unable to complete the packing himself as he has a fear of blood and medical procedures which typically leads to syncope. His dad is elderly and is unable to complete this packing. We will consult social work for home health referral for wound packing. Plan: Continue Daily wound care: Remove dressings and packing. Shower daily with antibacterial soap. Pat dry. JADEN drain: cover with a split gauze and tape to secure. Do not let the JADEN drain dangle. Secure with a safety pin and when showering hitting the JADEN drain on a lanyard. Midline: repack the open areas with 1/4 inch playing gauze for wicking purposes. Cover with a dry dressing. Tape to secure. Qualifiers: Surgical complication type: other Timing of complication: postoperative complication Qualified Code(s): L76.82 - Other postprocedural complications of skin and subcutaneous tissue (3) Acute urinary retention Current Visit: Yes Status: Acute Patient reports difficulty initiating stream. Suspect urinary retention secondary to narcotic use. Will rule out UTI. UA with reflux to culture (okay to straight of patient unable to avoid). Post avoid bladder scan start Flomax do not attempt to avoid while in the bed. Stand at the bedside to urinate or walk to the bathroom and urinate in the urinal there. (4) Leukocytosis Current Visit: Yes Status: Acute Continue IV antibiotics. See assessment and plan above Qualifiers: Leukocytosis type: other Qualified Code(s): D72.828 - Other elevated white blood cell count (5) DVT prophylaxis Current Visit: Yes Status: Acute C assessment and plan above Subjective Patient reports: feels better, still having pain, pain is less, tolerating liquids well, flatus, no bowel movement, afebrile Narrative: Del complains of mild feeling of bloating and fullness. He denies nausea or vomiting. He endorses small amounts of flatus. He denies fever or chills. He states overall he is feeling improved when compared to yesterday. He reports feelings of difficulty initiating a urine stream that began overnight. He denies burning with urination or urgency. Objective Vital Signs - Last 8 Hours Temp Pulse Resp BP Pulse Ox 11/08/17 06:49 98.4 F 75 14 117/73 91 11/08/17 03:33 98.0 F 64 16 95 11/08/17 01:44 98.3 F 68 17 115/72 93 Intake and Output 11/07/17 11/08/17 11/08/17 23:59 07:59 15:59 Intake Total 100 / 100 100 / 100 Output Total 1040 / 1040 610 / 610 Balance -940 / -940 -510 / -510 Intake: IV Fluids 100 / 100 100 / 100 Zosyn 3.375 GM In 0.9 % Sodium 100 / 100 100 / 100 Chloride (Mini-Bag +) 100 ML @ 25 mls/hr IVPB Q8HR [facility] Rx#: [id number] Output: Urine 550 / 550 400 / 400 Wound Drainage 490 / 490 210 / 210 Right Lower Abdomen 490 / 490 210 / 210 Other: Meal Refused # Urine Diapers 1 Weight 95.2 kg Blood Glucose* 212 Patient Weight 11/08/17 23:59 Weight 95.2 kg VITAL SIGNS: Reviewed. See [facility] GENERAL: In no apparent distress. HEENT: Normocephalic, atraumatic, pupils are equal and reactive, extraocular motions intact, oropharynx is pink and moist, there is no neck adenopathy or JVD noted. CHEST/RESPIRATORY: The thorax is free from signs of trauma. Lung sounds: clear to auscultation, normal respiratory effort CARDIAC: Regular rate and rhythm. Normal S1 and S2, without murmurs, gallops, or rubs. VASCULAR: No Edema. 2+ peripheral pulses. ABDOMEN: soft, hypoactive bowel sounds, mild distention, expected postoperative tenderness INCISION: Surgical incision is clean, dry, and intact with the exception of 2 areas that were opened one superior and one inferior to the umbilicus in which there is packing noted and looks significantly improved. WOUNDS/DRAINS: right lower quadrant JADEN site is clean and dry. Serous drainage noted. MUSCULOSKELETAL: Good range of motion of all major joints. Extremities without clubbing, cyanosis or edema. NEUROLOGIC EXAM: Alert and oriented x 3. Speech normal. Follows commands. PSYCHIATRIC: Mood normal. SKIN: No rash or lesions. - Labs 11/08/17 06:18 11/08/17 06:18 Diabetes panel 11/08/17 Range/Units 06:18 Sodium 138 (136-145) mEq/L Potassium 3.2 L (3.5-5.1) mEq/L Chloride 102 (98-107) mEq/L Carbon Dioxide 28 (23-29) mEq/L BUN 10 (6-20) mg/dL Creatinine 0.82 (0.70-1.30) mg/dL Glucose 93 (70-105) mg/dL Calcium 8.1 L (8.6-10.3) mg/dL Calcium panel 11/08/17 Range/Units 06:18 Calcium 8.1 L (8.6-10.3) mg/dL Phosphorus 3.8 (2.7-4.5) mg/dL Pituitary panel 11/08/17 Range/Units 06:18 Sodium 138 (136-145) mEq/L Potassium 3.2 L (3.5-5.1) mEq/L Chloride 102 (98-107) mEq/L Carbon Dioxide 28 (23-29) mEq/L BUN 10 (6-20) mg/dL Creatinine 0.82 (0.70-1.30) mg/dL Glucose 93 (70-105) mg/dL Calcium 8.1 L (8.6-10.3) mg/dL Adrenal panel 11/08/17 Range/Units 06:18 Sodium 138 (136-145) mEq/L Potassium 3.2 L (3.5-5.1) mEq/L Chloride 102 (98-107) mEq/L Carbon Dioxide 28 (23-29) mEq/L BUN 10 (6-20) mg/dL Creatinine 0.82 (0.70-1.30) mg/dL Glucose 93 (70-105) mg/dL Calcium 8.1 L (8.6-10.3) mg/dL - VTE Documentation of Mechanical Device: Intermittent pneumatic compression device Consult Discharge Plan - Plan Referrals: Mariajose Reyes DO [Primary Care Provider] - <Marlene Marrero - Last Filed: 11/08/17 21:44> Date of Encounter: 11/08/17 - Assessment and Plan (1) Leukocytosis Current Visit: Yes Status: Acute improving daily continue abx trend wbc Qualifiers: Leukocytosis type: other Qualified Code(s): D72.828 - Other elevated white blood cell count (2) Hyperlipidemia Current Visit: Yes Status: Chronic holding home medication Qualifiers: Hyperlipidemia type: unspecified Qualified Code(s): E78.5 - Hyperlipidemia , unspecified (3) Abdominal pain Current Visit: Yes Status: Acute prn pain control well controlled Qualifiers: Abdominal location: right lower quadrant Qualified Code(s): R10.31 - Right lower quadrant pain (4) Perforated appendicitis Current Visit: Yes Status: Acute npo, ok ice chips sparingly patient with good bowel sounds today, still some abdominal distention, small bm earlier kub noted restart ivf until increased po intake gi/dvt prophylaxis encouraged ambulation in hallways (5) Seasonal allergies Current Visit: Yes Status: Chronic Qualifiers: Allergic rhinitis trigger: unspecified Qualified Code(s): J30.2 - Other seasonal allergic rhinitis Subjective Patient reports: no new complaints, feels better, still having pain, pain is less, flatus, no bowel movement Narrative: complains that he was trying to drink clears to make us happy, some nausea, abdominal distention, flatus inconsistently, no bm Objective Vital Signs - Last 8 Hours Temp Pulse Resp BP Pulse Ox 11/08/17 21:15 97.5 F L 89 17 112/72 94 11/08/17 14:56 98.1 F 66 15 109/74 93 Intake and Output 11/08/17 11/08/17 11/08/17 07:59 15:59 23:59 Intake Total 100 / 100 862 / 862 Output Total 610 / 610 930 / 930 590 / 590 Balance -510 / -510 -68 / -68 -590 / -590 Intake: IV Fluids 100 / 100 622 / 622 Zosyn 3.375 GM In 0.9 % Sodium 100 / 100 100 / 100 Chloride (Mini-Bag +) 100 ML @ 25 mls/hr IVPB Q8HR [facility] Rx#: [id number] KCl 40 MEQ Xylocaine 2 ML In 522 / 522 Dextrose 5% 500 ML @ 130.5 mls/ hr IVPB ONCE ONE Rx#:[id number] Oral 240 / 240 Output: Urine 400 / 400 750 / 750 450 / 450 Wound Drainage 210 / 210 180 / 180 140 / 140 Right Lower Abdomen 210 / 210 180 / 180 140 / 140 Other: Meal NPO Percent of Meal Consumed 10% Stool Size Small Stool Consistency loose Stool Color Brown # Urine Diapers 1 # Bowel Movements 1 Weight 95.2 kg Blood Glucose* 212 Patient Weight 11/08/17 23:59 Weight 95.2 kg - General physical appearance well developed, no distress - Eyes PERRL, normal ocular movement - ENT normal mucosa, normocephalic - Neck Neck exam: trachea midline - Respiratory normal expansion, clear to auscultation - Cardiovascular Cardiovascular exam: Present: RRR - Abdomen Abdomen: Present: bowel sounds present, soft, tender (appropriate post op tenderness) - Incision Incision: Present: clean and dry, open (packed) - Integumentary no growths - Neurologic CN 2-12 grossly intact - Musculoskeletal normal posture - Psychiatric oriented to time, oriented to person, speech is normal - Labs 11/08/17 06:18 11/08/17 06:18 Diabetes panel 11/08/17 Range/Units 06:18 Sodium 138 (136-145) mEq/L Potassium 3.2 L (3.5-5.1) mEq/L Chloride 102 (98-107) mEq/L Carbon Dioxide 28 (23-29) mEq/L BUN 10 (6-20) mg/dL Creatinine 0.82 (0.70-1.30) mg/dL Glucose 93 (70-105) mg/dL Calcium 8.1 L (8.6-10.3) mg/dL Calcium panel 11/08/17 Range/Units 06:18 Calcium 8.1 L (8.6-10.3) mg/dL Phosphorus 3.8 (2.7-4.5) mg/dL Pituitary panel 11/08/17 Range/Units 06:18 Sodium 138 (136-145) mEq/L Potassium 3.2 L (3.5-5.1) mEq/L Chloride 102 (98-107) mEq/L Carbon Dioxide 28 (23-29) mEq/L BUN 10 (6-20) mg/dL Creatinine 0.82 (0.70-1.30) mg/dL Glucose 93 (70-105) mg/dL Calcium 8.1 L (8.6-10.3) mg/dL Adrenal panel 11/08/17 Range/Units 06:18 Sodium 138 (136-145) mEq/L Potassium 3.2 L (3.5-5.1) mEq/L Chloride 102 (98-107) mEq/L Carbon Dioxide 28 (23-29) mEq/L BUN 10 (6-20) mg/dL Creatinine 0.82 (0.70-1.30) mg/dL Glucose 93 (70-105) mg/dL Calcium 8.1 L (8.6-10.3) mg/dL Vital Signs Temp Pulse Resp BP Pulse Ox 11/08/17 21:15 97.5 F L 89 17 112/72 94 11/08/17 14:56 98.1 F 66 15 109/74 93 11/08/17 10:55 98.6 F 68 16 124/82 92 11/08/17 06:49 98.4 F 75 14 117/73 91 11/08/17 03:33 98.0 F 64 16 95 11/08/17 01:44 98.3 F 68 17 115/72 93 11/08/17 01:18 98.6 F 67 17 133/64 100 Intake and Output 11/08/17 11/08/17 11/08/17 07:59 15:59 23:59 Intake Total 100 / 100 862 / 862 Output Total 610 / 610 930 / 930 590 / 590 Balance -510 / -510 -68 / -68 -590 / -590 Intake: IV Fluids 100 / 100 622 / 622 Zosyn 3.375 GM In 0.9 % Sodium 100 / 100 100 / 100 Chloride (Mini-Bag +) 100 ML @ 25 mls/hr IVPB Q8HR [facility] Rx#: [id number] KCl 40 MEQ Xylocaine 2 ML In 522 / 522 Dextrose 5% 500 ML @ 130.5 mls/ hr IVPB ONCE ONE Rx#:[id number] Oral 240 / 240 Output: Urine 400 / 400 750 / 750 450 / 450 Wound Drainage 210 / 210 180 / 180 140 / 140 Right Lower Abdomen 210 / 210 180 / 180 140 / 140 Other: Meal NPO Percent of Meal Consumed 10% Stool Size Small Stool Consistency loose Stool Color Brown # Urine Diapers 1 # Bowel Movements 1 Weight 95.2 kg Blood Glucose* 212 Patient Weight 11/08/17 23:59 Weight 95.2 kg - Imaging Abdominal x-ray: report reviewed - Attending Attestation I have personally performed a face to face evaluation on this patient. I have reviewed and agree with the care plan. History and Exam by me shows:
[2017-11-08 09:56] LABS: Bilirubin,Urine Small (Negative); Blood,Urine Negative (Negative); Clarity,Urine Clear (Clear); Color,Urine Dark Yellow (Yellow); Glucose,Urine (UA) Normal (Normal); Ketones,Urine 80 mg/dL (Negative); Leukocyte Esterase,Urine Negative (Negative); Nitrite,Urine Negative (Negative); Protein,Urine 30 mg/dL (Neg-Trace); Specific Gravity,Urine > 1.030 (1.010-1.025); Urobilinogen,Urine Normal (Normal)
[2017-11-08 09:59] LABS: Bacteria,Urine None Seen per hpf (None-Few); Hyaline Casts,Urine None Seen per lpf (None-Few); Squamous Epithelial Cell,Urine Many per lpf (None-Few); WBC,Urine 0-3 per hpf (0-3)
[2017-11-08] MEDS: Fluticasone Propionate Nasal 50 MCG/SPRAY BOTTLE NS SCH (10:11)
[2017-11-08] MEDS ORDERED: 0.9 % Sodium Chloride 1,000 ML IVC ONE (10:32)
[2017-11-08] MEDS: Metoclopramide 10 MG/2 ML VIAL IVP SCH ×2 (11:52→18:35)
[2017-11-08] MEDS ORDERED: Methylnaltrexone 12 MG/0.6 ML SYRINGE SQ ONE (15:09)
[2017-11-08] MEDS ORDERED: Bisacodyl 10 MG RECTAL SUPPOSITORY RC SCH (21:00)
[2017-11-09] MEDS: Ketorolac 15 MG/ML VIAL IVP SCH ×3 (00:12→12:22)
[2017-11-09] MEDS: Metoclopramide 10 MG/2 ML VIAL IVP SCH ×5 (00:12→23:58)
[2017-11-09] MEDS: Acetaminophen IV 1,000 MG/100 ML INFUS..BTL IVPB SCH ×3 (00:23→16:50)
[2017-11-09] MEDS: Piperacillin/Tazobactam 3.375 GM in 0.9 % Sodium Chloride Mini Bag 100 ML IVPB SCH ×4 (00:23→23:57)
[2017-11-09] MEDS: D5% in 0.45% NACL w KCl 20 MEQ/1,000 ML MLS IVC SCH ×2 (00:51→12:23)
[2017-11-09] MEDS: *HR* Heparin 5,000 UNIT/ML VIAL SQ SCH ×2 (05:56→16:51)
[2017-11-09 07:03] LABS: Basophils % 0.4 %; Eosinophils # 0.2 K/mcL (0.0-0.6); Eosinophils % 2.6 %; Hematocrit 37.8 % (37.5-50.1); Hemoglobin 12.7 g/dL (12.9-16.9); Immature Granulocytes % 1.3 % (0-4); Lymphocytes # 2.4 K/mcL (0.6-4.6); Lymphocytes % 25.1 %; Mean Corpuscular HGB Conc 33.6 g/dL (31.6-35.5); Mean Corpuscular Hemoglobin 28.9 pg (28.0-33.3); Mean Corpuscular Volume 85.9 fL (83.0-100.0); Mean Platelet Volume 9.8 fL (9.4-12.4); Monocytes # 1.7 K/mcL (0.0-1.3); Monocytes % 18.1 %; Neutrophils # 4.9 K/mcL (1.6-8.9); Platelet Count 366 K/mcL (140-400); Red Cell Distribution Width 13.8 % (11.5-14.5); Segmented Neutrophils % 52.5 %
[2017-11-09 07:27] LABS: BUN/Creatinine Ratio 11 (6-26); Blood Urea Nitrogen 8 mg/dL (6-20); Calcium 7.9 mg/dL (8.6-10.3); Carbon Dioxide 25 mEq/L (23-29); Chloride 106 mEq/L (98-107); Glucose 103 mg/dL (70-105); Magnesium 1.9 mg/dL (1.6-2.6); Osmolality,Calculated 281 (280-300); Phosphorous 3.4 mg/dL (2.7-4.5); Potassium 3.4 mEq/L (3.5-5.1); Sodium 136 mEq/L (136-145); eGFR For African Americans > 60 (> 60); eGFR For Non-African Americans > 60 (> 60)
[2017-11-09] MEDS: Loratadine 10 MG TABLET PO SCH (09:34)
[2017-11-09] MEDS: Pantoprazole 40 MG VIAL IVP SCH (09:34)
[2017-11-09] MEDS: Fluticasone Propionate Nasal 50 MCG/SPRAY BOTTLE NS SCH (11:09)
[2017-11-09] MEDS: OXYCODONE Oral CONC 10 MG/0.5 ML ORAL.SYG SL PRN ×2 (16:52→23:56)
--- NOTE | 2017-11-09 17:30 | General Surgery Progress Note ---
<Anshul Rosario - Last Filed: 11/09/17 17:28> Date of Encounter: 11/09/17 Time of Encounter: 11:00 - Assessment and Plan (1) Perforated appendicitis Current Visit: Yes Status: Acute POD #6 s/p Laparoscopic appendectomy converted to open ileocectomy. Suspect mild postoperative ileus versus decreased bowel motility from narcotic use during this hospital stay. Will attempt more aggressive bowel motility including rectal laxative x1 today. Plan: -continue supportive care and discomfort management -patient tolerated liquid diet without any nausea, vomiting, or any other difficulty. Advance patient to regular diet as tolerated. -Continue miralax. -Tums for dyspepsia -Continue PRN percocet 7.5 mg. ] -Okay to premedicate with IV Zofran to prevent nausea. -Incentive spirometry -continue G.I. and DVT prophylaxis -area of midline incision was opened and packed for wicking purposes is today. WBC is improved. Continue IV Zosyn. -Reinforced that patient needs to ambulate at least 3 times daily and out of bed to chair for all meals. Do not eat meals while in bed. (2) Surgical complication involving skin Current Visit: Yes Status: Acute Postsurgical cellulitis/infection as expected given his findings of perforated appendix during surgical intervention. 2 wendie were removed 1 superior to the umbilicus and one inferior to the umbilicus yesterday by [employer]. Continue Daily wound care: Remove dressings and packing. Shower daily with antibacterial soap. Pat dry. JADEN drain: cover with a split gauze and tape to secure. Do not let the JADEN drain dangle. Secure with a safety pin and when showering hitting the JADEN drain on a lanyard. Midline: repack the open areas with 1/4 inch playing gauze for wicking purposes. Cover with a dry dressing. Tape to secure. Qualifiers: Surgical complication type: other Timing of complication: postoperative complication Qualified Code(s): L76.82 - Other postprocedural complications of skin and subcutaneous tissue (3) Leukocytosis Current Visit: Yes Status: Acute Resolved Qualifiers: Leukocytosis type: other Qualified Code(s): D72.828 - Other elevated white blood cell count (4) DVT prophylaxis Current Visit: Yes Status: Acute (5) Acute urinary retention Current Visit: Yes Status: Acute Resolved. UA yesterday does not show any infection. Subjective Patient reports: no new complaints, feels better, tolerating liquids well, voiding w/o difficulty, flatus, afebrile Objective Intake and Output 11/09/17 11/09/17 11/09/17 07:59 15:59 23:59 Intake Total 200 / 200 1200 / 1200 Output Total 510 / 510 1010 / 1010 Balance -310 / -310 190 / 190 Intake: IV Fluids 200 / 200 1200 / 1200 KCl 20mEq IN D5%-0.45 NACL 20 1000 / 1000 meq In 1,000 ml @ 75 mls/hr IVC .[id number] [facility] Rx#:[id number] Ofirmev 1,000 mg/100 ml 1,000 100 / 100 100 / 100 mg In 100 ml @ 400 mls/hr IVPB Q8HR [facility] Rx#:[id number] Zosyn 3.375 GM In 0.9 % Sodium 100 / 100 100 / 100 Chloride (Mini-Bag +) 100 ML @ 25 mls/hr IVPB Q8HR [facility] Rx#: [id number] Output: Urine 450 / 450 800 / 800 Wound Drainage 60 / 60 210 / 210 Right Lower Abdomen 60 / 60 210 / 210 Other: Stool Size Small Moderate Stool Consistency soft liquid Stool Characteristics Normal for Patient Stool Color Brown Brown - General physical appearance well developed, well nourished, no distress - Eyes PERRL, normal ocular movement - ENT normal mucosa - Neck Neck exam: trachea midline - Respiratory normal expansion, normal respiratory effort - Cardiovascular Cardiovascular exam: Present: RRR, no murmurs/rubs/gallops - Abdomen Abdomen: Present: bowel sounds present (Hypoactive bowel sounds), soft, tender ( Appropriate postoperative tenderness). Absent: guarding, rebound - Incision Incision: Present: clean and dry (2 areas that were opened one superior and one inferior to the umbilicus in which there is packing noted and looks significantly improved), intact. Absent: draining, purulent - Integumentary no rash - Neurologic CN 2-12 grossly intact - Psychiatric oriented to time, oriented to person, oriented to place - Labs 11/09/17 06:53 11/09/17 06:53 Diabetes panel 11/09/17 Range/Units 06:53 Sodium 136 (136-145) mEq/L Potassium 3.4 L (3.5-5.1) mEq/L Chloride 106 (98-107) mEq/L Carbon Dioxide 25 (23-29) mEq/L BUN 8 (6-20) mg/dL Creatinine 0.73 (0.70-1.30) mg/dL Glucose 103 (70-105) mg/dL Calcium 7.9 L (8.6-10.3) mg/dL Calcium panel 11/09/17 Range/Units 06:53 Calcium 7.9 L (8.6-10.3) mg/dL Phosphorus 3.4 (2.7-4.5) mg/dL Pituitary panel 11/09/17 Range/Units 06:53 Sodium 136 (136-145) mEq/L Potassium 3.4 L (3.5-5.1) mEq/L Chloride 106 (98-107) mEq/L Carbon Dioxide 25 (23-29) mEq/L BUN 8 (6-20) mg/dL Creatinine 0.73 (0.70-1.30) mg/dL Glucose 103 (70-105) mg/dL Calcium 7.9 L (8.6-10.3) mg/dL Adrenal panel 11/09/17 Range/Units 06:53 Sodium 136 (136-145) mEq/L Potassium 3.4 L (3.5-5.1) mEq/L Chloride 106 (98-107) mEq/L Carbon Dioxide 25 (23-29) mEq/L BUN 8 (6-20) mg/dL Creatinine 0.73 (0.70-1.30) mg/dL Glucose 103 (70-105) mg/dL Calcium 7.9 L (8.6-10.3) mg/dL - VTE Documentation of Mechanical Device: Intermittent pneumatic compression device Consult Discharge Plan - Plan Instructions: Open Appendectomy (DC), Acute Wound Care (DC) Additional Instructions: 1. No pushing, pulling, or lifting greater than 15 lbs for 4 weeks (depending upon procedure). 2. You may shower beginning today, but no tub baths, soaking, or swimming for 2 weeks. 3. You may resume driving when you are off narcotics and are safe to react in a car. 4. Take ibuprofen every 8 hours for discomfort. If this does not relieve discomfort, you may take the as needed Percocet. Take narcotics as directed. Do not take more narcotics then directed and do not share your narcotics with any other person. Do not drink alcohol while on narcotics. 5. Take stool softeners (Colace) or a water based laxative (Miralax) while taking narcotics. You may hold for loose stools. 6. Report any fevers greater than 100.5F, increase abdominal discomfort, drainage that looks like pus, increased redness or pain at the surgical site, or any vomiting. 7. Report any pain in the calves, shortness of breath, or rapid heartbeat. 8. Follow-up in the office as directed. 9. If you were prescribed antibiotics, do not stop them without talking to your provider. Referrals: Michelle Clark CNP [Advanced Practice Nurse] - (Call office on Saturday to schedule appt.) Mariajose Reyes DO [Primary Care Provider] - (Call office to schedule appt. on Saturday) Prescriptions: OxyCODONE/APAP 10/325 [Percocet 10/325 MG] 1 each PO Q6HR PRN 6 Days #24 tablet PRN Reason: Pain Ibuprofen [Motrin] 600 mg PO Q8HR PRN #30 tab PRN Reason: Pain Ciprofloxacin [Cipro] 500 mg PO BID 5 Days #10 tablet Docusate [Colace] 100 mg PO BID PRN #30 capsule PRN Reason: Constipation metroNIDAZOLE [Flagyl] 500 mg PO BID 5 Days #10 tablet <Man Bowman - Last Filed: 11/10/17 12:57> Date of Encounter: 11/09/17 Objective Vital Signs - Last 8 Hours Temp Pulse Resp BP Pulse Ox 11/10/17 07:27 97.8 F 83 14 119/80 94 Intake and Output 11/09/17 11/10/17 11/10/17 23:59 07:59 15:59 Intake Total 200 / 200 1350 / 1350 240 / 240 Output Total 400 / 400 1830 / 1830 205 / 205 Balance -200 / -200 -480 / -480 35 / 35 Intake: IV Fluids 200 / 200 1150 / 1150 KCl 20mEq IN D5%-0.45 NACL 20 950 / 950 meq In 1,000 ml @ 75 mls/hr IVC .[id number] [facility] Rx#:[id number] Ofirmev 1,000 mg/100 ml 1,000 100 / 100 100 / 100 mg In 100 ml @ 400 mls/hr IVPB Q8HR [facility] Rx#:[id number] Zosyn 3.375 GM In 0.9 % Sodium 100 / 100 100 / 100 Chloride (Mini-Bag +) 100 ML @ 25 mls/hr IVPB Q8HR [facility] Rx#: [id number] Oral 0 / 0 200 / 200 240 / 240 Output: Urine 300 / 300 1725 / 1725 200 / 200 Wound Drainage 100 / 100 105 / 105 5 / 5 Right Lower Abdomen 100 / 100 105 / 105 5 / 5 Other: Meal Breakfast Percent of Meal Consumed 50% Stool Size Moderate Stool Consistency soft Stool Color Brown # Voids 1 # Bowel Movements 0 1 Weight 95.6 kg Patient Weight 11/10/17 23:59 Weight 95.6 kg - Labs 11/10/17 06:37 11/10/17 06:37 Diabetes panel 11/10/17 Range/Units 06:37 Sodium 138 (136-145) mEq/L Potassium 3.6 (3.5-5.1) mEq/L Chloride 107 (98-107) mEq/L Carbon Dioxide 27 (23-29) mEq/L BUN 4 L (6-20) mg/dL Creatinine 0.87 (0.70-1.30) mg/dL Glucose 100 (70-105) mg/dL Calcium 8.2 L (8.6-10.3) mg/dL Calcium panel 11/10/17 Range/Units 06:37 Calcium 8.2 L (8.6-10.3) mg/dL Phosphorus 3.8 (2.7-4.5) mg/dL Pituitary panel 11/10/17 Range/Units 06:37 Sodium 138 (136-145) mEq/L Potassium 3.6 (3.5-5.1) mEq/L Chloride 107 (98-107) mEq/L Carbon Dioxide 27 (23-29) mEq/L BUN 4 L (6-20) mg/dL Creatinine 0.87 (0.70-1.30) mg/dL Glucose 100 (70-105) mg/dL Calcium 8.2 L (8.6-10.3) mg/dL Adrenal panel 11/10/17 Range/Units 06:37 Sodium 138 (136-145) mEq/L Potassium 3.6 (3.5-5.1) mEq/L Chloride 107 (98-107) mEq/L Carbon Dioxide 27 (23-29) mEq/L BUN 4 L (6-20) mg/dL Creatinine 0.87 (0.70-1.30) mg/dL Glucose 100 (70-105) mg/dL Calcium 8.2 L (8.6-10.3) mg/dL - Attending Attestation I examined this patient and my medical decision-making was reviewed with the Resident Physician. I agree with the documented findings, disposition and treatment plan as described except to the extent set forth below. The patient is seen and evaluated on morning rounds with the resident. He is progressing well after localized right hemicolectomy for severe appendicitis we will advance his diet today. If he develops normal bowel function he will be able to be discharged tomorrow. Continue supportive care. Man Bowman MD FACS
[2017-11-10] MEDS: Acetaminophen IV 1,000 MG/100 ML INFUS..BTL IVPB SCH ×2 (01:23→08:21)
[2017-11-10] MEDS: D5% in 0.45% NACL w KCl 20 MEQ/1,000 ML MLS IVC SCH (01:29)
[2017-11-10] MEDS: *HR* Heparin 5,000 UNIT/ML VIAL SQ SCH (06:08)
[2017-11-10] MEDS: Metoclopramide 10 MG/2 ML VIAL IVP SCH ×2 (06:08→11:29)
[2017-11-10 07:21] LABS: BUN/Creatinine Ratio 5 (6-26); Blood Urea Nitrogen 4 mg/dL (6-20); Carbon Dioxide 27 mEq/L (23-29); Chloride 107 mEq/L (98-107); Potassium 3.6 mEq/L (3.5-5.1); Sodium 138 mEq/L (136-145); eGFR For African Americans > 60 (> 60)
[2017-11-10 07:22] LABS: Calcium 8.2 mg/dL (8.6-10.3); Glucose 100 mg/dL (70-105); Magnesium 2.1 mg/dL (1.6-2.6); Osmolality,Calculated 283 (280-300); Phosphorous 3.8 mg/dL (2.7-4.5); eGFR For Non-African Americans > 60 (> 60)
[2017-11-10 07:32] VITALS: BP 119/80
[2017-11-10 07:40] LABS: Basophils # 0.1 K/mcL (0.0-0.2); Basophils % 0.5 %; Eosinophils # 0.2 K/mcL (0.0-0.6); Eosinophils % 2.3 %; Hematocrit 39.8 % (37.5-50.1); Hemoglobin 13.1 g/dL (12.9-16.9); Immature Granulocytes % 1.5 % (0-4); Lymphocytes # 2.7 K/mcL (0.6-4.6); Lymphocytes % 27.3 %; Mean Corpuscular HGB Conc 32.9 g/dL (31.6-35.5); Mean Corpuscular Hemoglobin 28.6 pg (28.0-33.3); Mean Corpuscular Volume 86.9 fL (83.0-100.0); Mean Platelet Volume 10.1 fL (9.4-12.4); Monocytes # 1.7 K/mcL (0.0-1.3); Monocytes % 17.3 %; Platelet Count 444 K/mcL (140-400); Red Blood Count 4.58 M/mcL (4.19-5.50); Red Cell Distribution Width 14.1 % (11.5-14.5); Segmented Neutrophils % 51.1 %
[2017-11-10] MEDS: Pantoprazole 40 MG VIAL IVP SCH (08:22)
[2017-11-10] MEDS: Piperacillin/Tazobactam 3.375 GM in 0.9 % Sodium Chloride Mini Bag 100 ML IVPB SCH (08:22)
[2017-11-10] MEDS: Fluticasone Propionate Nasal 50 MCG/SPRAY BOTTLE NS SCH (08:24)
[2017-11-10] MEDS: Loratadine 10 MG TABLET PO SCH (08:24)
--- NOTE | 2017-11-10 12:16 | Discharge Summary ---
<Anshul Rosario - Last Filed: 11/10/17 15:54> Date of Encounter: 11/10/17 Time of Encounter: 09:45 - Discharge Diagnosis (1) Perforated appendicitis Priority: Primary Status: Acute (2) Surgical complication involving skin Priority: Secondary Status: Acute Qualifiers: Surgical complication type: other Timing of complication: postoperative complication Qualified Code(s): L76.82 - Other postprocedural complications of skin and subcutaneous tissue (3) Leukocytosis Priority: Secondary Status: Acute Qualifiers: Leukocytosis type: other Qualified Code(s): D72.828 - Other elevated white blood cell count (4) DVT prophylaxis Priority: Secondary Status: Acute (5) Acute urinary retention Priority: Secondary Status: Acute General Surgery Exam Initial Vital Signs Temp Pulse Resp BP Pulse Ox 98.2 F 102 20 93/65 97 11/02/17 07:04 11/02/17 07:04 11/02/17 07:04 11/02/17 07:04 11/02/17 07:04 - General physical appearance well developed, well nourished, no distress - Eyes PERRL, normal ocular movement - ENT normal mucosa - Neck trachea midline - Respiratory normal expansion, normal respiratory effort, clear to auscultation - Cardiovascular Cardiovascular exam: Present: RRR, no murmurs/rubs/gallops - Abdomen Abdomen general surgery: Present: bowel sounds present, soft, tender ( Appropriate Postoperative tenderness). Absent: distended Hernia: Present: none - Incision Incision: Present: clean and dry, intact. Absent: draining, purulent - Integumentary Integumentary general surgery: Present: warm and dry - Neurologic Present: CN 2-12 grossly intact - Psychiatric Psychiatric general surgery: Present: appropriate, oriented to person, oriented to place, oriented to time - Hospital Course Hospital course: Mr. Lange is a 42 year old male who reported to the emergency department on 05/2018 complaining of abdominal pain. The patient describes the pain as a sharp umbilical pain that has radiated to his right lower quadrant and started approximately 2 days prior to admission. Evaluation in the emergency department included labs that showed leukocytosis with elevated white blood count at 21.6 and elevated neutrophils at 15.6. CT of the abdomen with contrast shows perforated acute appendicitis with appendicolith noted, and inflammation and fluid in the periappendiceal region/retroperitoneum, with a small amount of free fluid in the abdomen. The patient received surgical intervention within [address] Marrero performed a laparoscopic appendectomy that was converted to open ileocectomy. The patient tolerated procedure well. The patient admits return of bowel functions with bowel movements.Patient denies any fever, headaches, vision changes, near syncope, chest pain, shortness of breath, difficulty breathing, constipation, diarrhea, urinary symptoms, and any weaknesses. Patient was instructed to follow up with his primary care physician within one week. Patient was instructed to follow-up in the surgery outpatient clinic. Patient demonstrate verbal understanding. Patient has no other concerns at this time. - Time Spent with Patient Total time spent providing and/or coordinating discharge services: - Discharge Medications Prescriptions: OxyCODONE/APAP 10/325 [Percocet 10/325 MG] 1 each PO Q6HR PRN 6 Days #24 tablet PRN Reason: Pain Ibuprofen [Motrin] 600 mg PO Q8HR PRN #30 tab PRN Reason: Pain Ciprofloxacin [Cipro] 500 mg PO BID 5 Days #10 tablet Docusate [Colace] 100 mg PO BID PRN #30 capsule PRN Reason: Constipation metroNIDAZOLE [Flagyl] 500 mg PO BID 5 Days #10 tablet Home Medications: Aspirin 975 mg PO DAILY 11/02/17 [History] Atorvastatin Calcium [Lipitor] 20 mg PO HS 11/02/17 [History] Cetirizine HCl 10 mg PO DAILY 11/02/17 [History] Fluticasone Propionate Nasal [Flonase] 1 spray NS DAILY 11/02/17 [History] Fluticasone/Vilanterol [Breo Ellipta 100-25 Mcg INH] 1 puff IH DAILY 11/02/17 [ History] Ciprofloxacin [Cipro] 500 mg PO BID 5 Days #10 tablet 11/10/17 [Rx] Docusate [Colace] 100 mg PO BID PRN #30 capsule 11/10/17 [Rx] Ibuprofen [Motrin] 600 mg PO Q8HR PRN #30 tab 11/10/17 [Rx] OxyCODONE/APAP 10/325 [Percocet 10/325 MG] 1 each PO Q6HR PRN 6 Days #24 tablet 11/10/17 [Rx] metroNIDAZOLE [Flagyl] 500 mg PO BID 5 Days #10 tablet 11/10/17 [Rx] Allergies/Adverse Reactions: 3 Allergy/AdvReac Type Severity Reaction Status Date / Time No Known Allergies Allergy Verified 11/02/17 09:28 Date of admission: 11/02/17 09:09 Primary care physician: Mariajose Reyes DO Consults: 11/07/17 10:31 Consult to Narrow Gauge Engineer [CONS] Routine Reason for SW Consult: Will need home health for midline abdominal packing Discharging clinician: Anshul Rosario Labs on day of discharge: Labs from last 24 hours 11/10/17 11/10/17 06:37 06:37 WBC 9.9 RBC 4.58 Hgb 13.1 Hct 39.8 MCV 86.9 MCH 28.6 MCHC 32.9 RDW 14.1 Plt Count 444 H MPV 10.1 Immature Gran % 1.5 Seg Neutrophils % 51.1 Lymphocytes % 27.3 Monocytes % 17.3 Eosinophils % 2.3 Basophils % 0.5 Neutrophils # 5.0 Lymphocytes # 2.7 Monocytes # 1.7 H Eosinophils # 0.2 Basophils # 0.1 Sodium 138 Potassium 3.6 Chloride 107 Carbon Dioxide 27 BUN 4 L Creatinine 0.87 Est GFR ( Amer) > 60 Est GFR (Non-Af Amer) > 60 BUN/Creatinine Ratio 5 L Glucose 100 Calculated Osmolality 283 Calcium 8.2 L Phosphorus 3.8 Magnesium 2.1 - Impressions ITS Impressions KUB X-Ray 11/08/17 08:47 IMPRESSION: Dilated small bowel measuring up to 5 cm. Given the recent surgery, findings could represent ileus. Small bowel obstruction is not excluded. D/ / 11/08/2017 09:54:25 Rohan Silva MD / kaelyn Interpreting Provider: Rohan Silva MD - Patient Status Disposition: Home Health Service Condition: Fair Functional capacity at discharge: independent ambulation Overall status at discharge: patient is progressing back to baseline - Discharge Instructions Instructions: Open Appendectomy (DC), Acute Wound Care (DC) Follow Up With: Michelle Clark CNP [Advanced Practice Nurse] - (Call office on Saturday to schedule appt.) Mariajose Reyes DO [Primary Care Provider] - (Call office to schedule appt. on Saturday) Additional Instructions: 1. No pushing, pulling, or lifting greater than 15 lbs for 4 weeks (depending upon procedure). 2. You may shower beginning today, but no tub baths, soaking, or swimming for 2 weeks. 3. You may resume driving when you are off narcotics and are safe to react in a car. 4. Take ibuprofen every 8 hours for discomfort. If this does not relieve discomfort, you may take the as needed Percocet. Take narcotics as directed. Do not take more narcotics then directed and do not share your narcotics with any other person. Do not drink alcohol while on narcotics. 5. Take stool softeners (Colace) or a water based laxative (Miralax) while taking narcotics. You may hold for loose stools. 6. Report any fevers greater than 100.5F, increase abdominal discomfort, drainage that looks like pus, increased redness or pain at the surgical site, or any vomiting. 7. Report any pain in the calves, shortness of breath, or rapid heartbeat. 8. Follow-up in the office as directed. 9. If you were prescribed antibiotics, do not stop them without talking to your provider. - Diet and Activity Activity: increase activity as tolerated Diet: advance to your usual diet <Man Bowman - Last Filed: 11/11/17 07:37> Date of Encounter: 11/10/17 General Surgery Exam Initial Vital Signs Temp Pulse Resp BP Pulse Ox 98.2 F 102 20 93/65 97 11/02/17 07:04 11/02/17 07:04 11/02/17 07:04 11/02/17 07:04 11/02/17 07:04 - Hospital Course Hospital course: Mr. Lange is a 42 year old male - Time Spent with Patient Total time spent providing and/or coordinating discharge services: Date of admission: 11/02/17 09:09 Primary care physician: Mariajose Reyes DO Consults: 11/07/17 10:31 Consult to Narrow Gauge Engineer [CONS] Routine Reason for SW Consult: Will need home health for midline abdominal packing Labs on day of discharge: Labs from last 24 hours 11/10/17 06:37 WBC 9.9 RBC 4.58 Hgb 13.1 Hct 39.8 MCV 86.9 MCH 28.6 MCHC 32.9 RDW 14.1 Plt Count 444 H MPV 10.1 Immature Gran % 1.5 Seg Neutrophils % 51.1 Lymphocytes % 27.3 Monocytes % 17.3 Eosinophils % 2.3 Basophils % 0.5 Neutrophils # 5.0 Lymphocytes # 2.7 Monocytes # 1.7 H Eosinophils # 0.2 Basophils # 0.1 - Impressions ITS Impressions KUB X-Ray 11/08/17 08:47 IMPRESSION: Dilated small bowel measuring up to 5 cm. Given the recent surgery, findings could represent ileus. Small bowel obstruction is not excluded. D/ / 11/08/2017 09:54:25 Rohan Silva MD / kaelyn Interpreting Provider: Rohan Silva MD - Attending Attestation I examined this patient and my medical decision-making was reviewed with the Resident Physician. I agree with the documented findings, disposition and treatment plan as described except to the extent set forth below. The patient is seen and evaluated with rest and on morning rounds. He is tolerating a regular diet. He is having bowel movements. He will be discharged to home on 5 days of oral antibiotic therapy. Man Bowman MD FACS
--- NOTE | 2017-11-10 12:36 | Physician Discharge Referral ---
<Yas Rosario-My - Last Filed: 11/10/17 12:33> Home Health/Hosp Referral Info Transfer to: Home Health Provider in Charge Post Discharge: PCP - Diagnosis (1) Perforated appendicitis Priority: Primary Status: Acute (2) Surgical complication involving skin Priority: Secondary Status: Acute (3) Leukocytosis Priority: Secondary Status: Acute (4) DVT prophylaxis Priority: Secondary Status: Acute (5) Acute urinary retention Priority: Secondary Status: Acute - Respiratory Orders Smoking Cessation: Smoking cessation has been advised. For more information, call the [place] Tobacco Quit Line at 2-005-OLCF-NOW. - Dressing/Wound Care Site: Midline abdomen Type of Dressing/Treatments w/Frequency: Pack the open areas with 1/4 inch playing gauze for wicking purposes. Cover with a dry dressing. Tape to secure. - Services Needed Following services are medically necessary services: Nursing, Home Health Aide - Transfer Medications Prescriptions: OxyCODONE/APAP 10/325 [Percocet 10/325 MG] 1 each PO Q6HR PRN 6 Days #24 tablet PRN Reason: Pain Ibuprofen [Motrin] 600 mg PO Q8HR PRN #30 tab PRN Reason: Pain Ciprofloxacin [Cipro] 500 mg PO BID 5 Days #10 tablet Docusate [Colace] 100 mg PO BID PRN #30 capsule PRN Reason: Constipation metroNIDAZOLE [Flagyl] 500 mg PO BID 5 Days #10 tablet Home Medications: Aspirin 975 mg PO DAILY 11/02/17 [History] Atorvastatin Calcium [Lipitor] 20 mg PO HS 11/02/17 [History] Cetirizine HCl 10 mg PO DAILY 11/02/17 [History] Fluticasone Propionate Nasal [Flonase] 1 spray NS DAILY 11/02/17 [History] Fluticasone/Vilanterol [Breo Ellipta 100-25 Mcg INH] 1 puff IH DAILY 11/02/17 [ History] Ciprofloxacin [Cipro] 500 mg PO BID 5 Days #10 tablet 11/10/17 [Rx] Docusate [Colace] 100 mg PO BID PRN #30 capsule 11/10/17 [Rx] Ibuprofen [Motrin] 600 mg PO Q8HR PRN #30 tab 11/10/17 [Rx] OxyCODONE/APAP 10/325 [Percocet 10/325 MG] 1 each PO Q6HR PRN 6 Days #24 tablet 11/10/17 [Rx] metroNIDAZOLE [Flagyl] 500 mg PO BID 5 Days #10 tablet 11/10/17 [Rx] Allergies/Adverse Reactions: 3 Allergy/AdvReac Type Severity Reaction Status Date / Time No Known Allergies Allergy Verified 11/02/17 09:28 Certification: Further, I certify that my clinical findings support that this patient is homebound (i.e. absences from home require considerable and taxing effort and are for medical reasons or alevism services or infrequently or short duration when for other reasons) because: Homebound Reason: Patient requires assistance of a person or device to safely leave home Attestation: My signature below is to certify that this patient is under my care and that I, or nurse practitioner, or a physician's household assistant working with me, has a face-to -face encounter with this patient. <Man Bowman - Last Filed: 11/11/17 07:35> - Respiratory Orders Smoking Cessation: Smoking cessation has been advised. For more information, call the [place] Tobacco Quit Line at 4-592-AWZV-NOW. Certification: Further, I certify that my clinical findings support that this patient is homebound (i.e. absences from home require considerable and taxing effort and are for medical reasons or alevism services or infrequently or short duration when for other reasons) because: Attestation: My signature below is to certify that this patient is under my care and that I, or nurse practitioner, or a physician's household assistant working with me, has a face-to -face encounter with this patient.
== END 2017-11-10 13:54 | disposition home health service (06) | DRG 231 ==
LOC: EMEROO 07:02 → 3ANU 09:09
PROVIDERS: ADMIT Surgery; ATTEND Surgery